=== PATIENT | female | born 1950 | race Caucasian/White ===

== ENCOUNTER 2018-04-30 10:16 | Outpatient (CLI) | payer MEDICARE ==
--- NOTE | 2018-04-30 12:27 | ULT ---
TRANSABDOMINAL AND TRANSVAGINAL PELVIC ULTRASOUND: Date 04/30/18 HISTORY: 68-year-old female with pelvic fullness, discharge, and pelvic pain. FINDINGS/IMPRESSION: The patient is post hysterectomy. No free fluid is seen. In the region of the left adnexa, there is a n echogenic area which could represent bowel. However, no peristalsis was demonstrated during evaluat ion. This measured 7.3 x 2.5 cm. The possibility of a mass cannot be completely excluded. Further evaluation with CT scan of the abdomen and pelvis with oral and IV contrast is recommended. POS: DARI
== END 2018-04-30 10:17 | disposition home or self-care (01) ==
LOC: BICULT 10:16 → MERGE 11:00
PROVIDERS: ATTEND Family Medicine
DX: R19.00 Intra-abdominal and pelvic swelling, mass and lump, unspecified site (principal); Z90.710 Acquired absence of both cervix and uterus
CPT/HCPCS: 76856

== ENCOUNTER 2018-04-30 10:39 | Outpatient (CLI) | payer MEDICARE ==
--- NOTE | 2018-04-30 16:47 | ULT ---
LEFT BREAST ULTRASOUND: HISTORY: Palpable mass at the 4 o'clock position of the left breast. TECHNIQUE: Multiplanar haley-scale and color Doppler images were obtained in a left breast ultrasound. FINDINGS: In the 4 o'clock position of the left breast, normal appearing breast parenchyma is seen. No cyst is seen. No suspicious shadowing or solid mass is identified. IMPRESSION: BI-RADS category 1-Negative. Annual screening mammography is recommended. POS: DARI
--- NOTE | 2018-05-05 13:24 | MMO ---
Bilateral MAMMO Bilat Diag DDI+ANA. CLINICAL HISTORY: Patient is 68 years old and is seen for diagnostic exam,lump or thickening and pain in the left breast. The patient has no family history of breast cancer. The patient has no personal history of cancer. VIEWS: The views performed were: bilateral craniocaudal with tomosynthesis; bilateral mediolateral oblique with tomosynthesis; and bilateral mediolateral. FILMS COMPARED: The present examination has been compared to prior imaging studies performed at [facility] on 04/30/2018, and at [facility] on 08/04/2004 and 03/29/2009. MAMMOGRAM FINDINGS: There are scattered fibroglandular densities. There are benign appearing calcifications seen in both breasts. There are no suspicious masses, calcifications or areas of architectural distortion. IMPRESSION: THERE IS NO MAMMOGRAPHIC EVIDENCE OF MALIGNANCY. A ROUTINE FOLLOW-UP MAMMOGRAM IN 1 YEAR IS RECOMMENDED. THE RESULTS OF THIS EXAM WERE SENT TO THE PATIENT. ACR BI-RADS Category 2 - Benign finding MAMMOGRAPHY NOTE: 1. A negative mammogram report should not delay a biopsy if a dominant of clinically suspicious mass is present. 2. Approximately 10% to 15% of breast cancers are not detected by mammography. 3. Adenosis and dense breasts may obscure an underlying neoplasm.
== END 2018-04-30 10:40 | disposition home or self-care (01) ==
LOC: BICMAMMO 10:39 → MERGE 14:00
PROVIDERS: ATTEND Family Medicine
DX: N63.20 Unspecified lump in the left breast, unspecified quadrant (principal)
CPT/HCPCS: 76642; 77066; G0279

== ENCOUNTER 2018-05-14 10:24 | Outpatient (CLI) | payer MEDICARE ==
[~2018-05-14 10:24] MED LIST: ISOVUE-370 76%-LOCM 1 ML ONE
--- NOTE | 2018-05-14 11:36 | CT ---
FContrast-enhanced CT images abdomen and pelvis. HISTORY: Patient with constipation and vaginal discharge for 3 months[address] Contrast-enhanced CT images of the abdomen and pelvis demonstrates the lung bases to be unremarkable. No evidence of free intraperitoneal air seen. The liver, spleen, gallbladder, pancreas, adrenal glands are unremarkable. The left kidney is unremar kable. There is an area of cortical thinning seen in the lower pole of the right kidney anteriorly compatibl e with an area of likely scarring. No evidence of hydroureteronephrosis seen. Atherosclerotic calcifications seen in the abdominal aorta and iliac arteries. No dilated loops of small bowel seen. The proximal and transverse colon is unremarkable. The descending colon is unremarkable. There is an area of abnormal thickening in the sigmoid colon and proximal rectum. There is a loss of the fat plane between the sigmoid colon and the left urinary bladder dome. There is abnormal thickeni ng in this area. This may represent fistulous communication or invasion of a colonic or urinary bladd er mass into the adjacent structure. Correlate with the cystoscopy and urinalysis. IMPRESSION: Area of left urinary bladder dome thickening with loss of the fat plane between the sigmo id colon and urinary bladder. There may be a colonic mass with extension into the bladder. Correlate with direct visualization of the urinary bladder and colon.
== END 2018-05-14 10:25 | disposition home or self-care (01) ==
LOC: BICCT 10:24
PROVIDERS: ATTEND Family Medicine
DX: R19.00 Intra-abdominal and pelvic swelling, mass and lump, unspecified site (principal)
CPT/HCPCS: 74177; 82565; Q9966

== ENCOUNTER 2018-06-26 08:37 | Outpatient (CLI) | payer MEDICARE ==
--- NOTE | 2018-06-26 10:26 | CT ---
CT Abdomen Pelvis W WO con: 06/26/2018 12:00 AM CLINICAL HISTORY: Previous mass between the colon and bladder.. TECHNIQUE: Multiple contiguous axial images were obtained and a CT of the abdomen and pelvis without and with IV contrast. Postcontrast images were obtained in the nephrographic and excretory phases. Sagittal and coronal reformats were performed. Additionally, a CT cystogram of the pelvis was performed after instilling contrast through a catheter in the urinary bladder. COMPARISON: 05/14/2018 FINDINGS: Kidneys and Urinary Tract: Right kidney and ureter: No calculi. No hydronephrosis or hydroureter. No renal mass or other lesions . No urothelial lesions: no filling defect, dilation, stricture or wall thickening. Left kidney and ureter: No calculi. No hydronephrosis or hydroureter. No renal mass or other lesions. No urothelial lesions: no filling defect, dilation, stricture or wall thickening. Urinary bladder: Mild thickening of the dome of the urinary bladder wall. No foci of air in the urina ry bladder before the contrast was instilled.. Remainder of Abdomen and Pelvis: Liver: Normal. Gallbladder and biliary system: Normal. No CT evident gallstones. No biliary ductal dilatation. Spleen: Normal. Pancreas: Normal. Adrenal glands: 1.2 cm right adrenal mass with mean Hounsfield unit value of -34. This most likely re presents an adrenal adenoma. Normal left adrenal gland. GI tract: Scattered diverticula are seen in the colon. The sigmoid colon is intimately associated wit h the urinary bladder which may represent scarring from prior episodes of diverticulitis. No obvious colon mass is seen. Abdominal aorta and its major branches: Atherosclerotic calcifications No aneurysm. Peritoneum/retroperitoneum: Normal. No ascites. No adenopathy. Pelvic structures: Status post hysterectomy. No pelvic lymphadenopathy. Body wall and musculoskeletal: Degenerative changes in the spine. Visualized lower thorax: Normal. No pulmonary parenchymal mass or pleural effusion. IMPRESSION: 1. Intimate association between the colon and urinary bladder wall is likely secondary to scarring fr om prior diverticulitis. 2. Right adrenal adenoma
== END 2018-06-26 08:38 | disposition home or self-care (01) ==
LOC: CT 08:37
PROVIDERS: ATTEND Urology
DX: R19.00 Intra-abdominal and pelvic swelling, mass and lump, unspecified site (principal); D35.01 Benign neoplasm of right adrenal gland
CPT/HCPCS: 74178; 82565

== ENCOUNTER 2018-08-11 09:00 | Outpatient (CLI) | payer MEDICARE ==
[2018-08-11 12:01] LABS: #Eosinphils 0.1 thou/uL (0.0-0.7); #Lymphocytes 2.5 thou/uL (1.20-3.40); #Monocytes 0.7 thou/uL (0.11-0.59); #Neutrophils 6.6 thou/uL (1.40-6.50); %Basophils 0.5 % (0.0-1.0); %Eosinophils 0.7 % (0.0-10.0); %Lymphocytes 25.1 % (21.0-51.0); %Monocytes 7.4 % (0.0-10.0); %Neutrophils 66.3 % (42.0-75.0); Hemoglobin 15.4 g/dL (12.0-16.0); Mean Corpuscular HGB CONC 31.8 g/dL (32.0-36.0); Mean Corpuscular Hemoglobin 31.5 pg (27.0-31.0); Mean Corpuscular Volume 99.1 fL (78.0-98.0); Platelet Count 282 thou/uL (130-400); RBC Distribution Width 12.4 % (11.5-14.5); Red Blood Cell (RBC) Count 4.88 mill/uL (4.20-5.40); White Blood Cell (WBC) Count 9.9 thou/uL (4.8-10.8)
[2018-08-11 12:06] LABS: Hemoglobin A1c 6.1 % (4.0-6.0)
[2018-08-11 12:28] LABS: ALT (SGPT) 12 U/L (8-55); AST (SGOT) 15 U/L (5-34); Albumin 4.3 g/dL (3.4-4.8); Alkaline Phosphatase 127 U/L (40-150); Anion Gap 15 mmol/L (10-20); BUN (Urea Nitrogen) 10 mg/dL (9.8-20.1); Bilirubin, Total 0.6 mg/dL (0.2-1.2); Calc. Creatinine Clearance 0 mL/min (70-130); Calcium 9.5 mg/dL (7.8-10.44); Carbon Dioxide 29 mmol/L (23-31); Chloride 100 mmol/L (98-107); Estimated GFR-MDRD 72; Globulin 2.7 g/dL (2.4-3.5); Glucose 104 mg/dL (80-115); Potassium 3.7 mmol/L (3.5-5.1); Sodium 140 mmol/L (136-145)
== END 2018-08-11 09:01 | disposition home or self-care (01) ==
LOC: LABBT 09:00
PROVIDERS: ATTEND Surgery
DX: Z01.818 Encounter for other preprocedural examination (principal); N82.4 Other female intestinal-genital tract fistulae
CPT/HCPCS: 80053; 83036; 85025; 93005; 93010

== ENCOUNTER 2018-08-11 10:15 | Inpatient (IN) | payer MEDICARE ==
[2018-08-11 10:34] VITALS: BMI 20.9
[2018-08-18] MEDS ORDERED: Fentanyl 100 MCG/2 ML VIAL ONE ×2 (07:56→12:40)
[2018-08-18] MEDS ORDERED: Dexamethasone 4 mg/ml Vial ONE (07:56)
[2018-08-18] MEDS ORDERED: Midazolam HCl 2 mg/2 ml Vial ONE (07:56)
[2018-08-18] MEDS ORDERED: Meropenem 2 GM in Sodium Chloride 0.9% 100 ML IVPB SCH (08:45)
[2018-08-18] MEDS ORDERED: Fentanyl 250 MCG/5 ML VIAL ONE (08:49)
[2018-08-18] MEDS ORDERED: Bupivacaine HCl 0.5%/Epinephrine 1:200,000/PF 30 ml Vial ONE (11:15)
[2018-08-18] MEDS ORDERED: Glycopyrrolate 0.2 MG/ML 5 ML SYRINGE ONE (11:48)
[2018-08-18] MEDS ORDERED: Ketorolac Tromethamine 30 MG/ML VIAL ONE (11:48)
[2018-08-18] MEDS ORDERED: Rocuronium Bromide 10 MG/ML (10ML VIAL) ONE (11:48)
[2018-08-18] MEDS ORDERED: PROPOFOL 200 MG/20 ML VIAL ONE (11:48)
[2018-08-18] MEDS ORDERED: Lidocaine 1% PF 5 ML VIAL ONE (11:48)
[2018-08-18] MEDS ORDERED: Morphine 4 MG/ML VIAL SLOW IVP PRN (12:05)
[2018-08-18] MEDS ORDERED: hydrALAZINE 20 MG/ML VIAL SLOW IVP PRN (12:05)
[2018-08-18] MEDS ORDERED: Promethazine HCl 25 MG/ML VIAL IM PRN ×2 (12:05→12:24)
[2018-08-18] MEDS ORDERED: Ondansetron PF 4 MG/2 ML Vial IVP PRN (12:05)
[2018-08-18] MEDS ORDERED: hydrALAZINE 20 MG/ML VIAL ONE (12:14)
[2018-08-18] MEDS ORDERED: Promethazine HCl 25 MG/ML VIAL SLOW IVP PRN (12:24)
[2018-08-18] MEDS ORDERED: Ondansetron HCl/PF 4 MG/2 ML Vial IVP PRN (12:24)
--- NOTE | 2018-08-18 13:00 | HP ---
CHIEF COMPLAINT: Vaginal discharge. HISTORY OF PRESENT ILLNESS: The patient is a 68-year-old female, who had developed diverticulitis in February, was treated with antibiotics. She has also had severe constipation and foul-smelling vaginal discharge. Colonoscopy shows a very tight stricture, and CT scan showed a colovaginal fistula. PAST MEDICAL HISTORY: Significant for COPD, arthritis. PAST SURGICAL HISTORY: section. She had adhesion removal, hysterectomy, colonoscopy, cystoscopy, vaginoscopy. FAMILY HISTORY: Non-Hodgkin's lymphoma, diabetes. SOCIAL HISTORY: She is . Former smoker. She quit 4 years ago. Occasional alcohol. She has allergies to some antibiotics that she does not remember the name of it. PHYSICAL EXAMINATION: VITAL SIGNS: Height 58, weight 103, body mass index 21.5. GENERAL: She is a well-developed, well-nourished female, in no apparent distress. HEENT: Unremarkable. LUNGS: Clear. HEART: Regular rate and rhythm. ABDOMEN: She has a well-healed surgical scar, low midline. No hernias. No tenderness or mass. EXTREMITIES: Good pulses. No pedal edema. ASSESSMENT: Colovaginal fistula with stricture. PLAN: We will attempt laparoscopic sigmoid colectomy, possible open. CONSENT: I have discussed the planned procedure as well as risk of bleeding, infection, injury to bowel, bladder, need to open leakage from any anastomosis and recurrence. She understands and gives her informed consent. Job ID: [id number]
[2018-08-18] MEDS ORDERED: D5 1/2 NS w/20 mEq KCL 1,000 ML ONE (13:32)
[2018-08-18] MEDS: Acetaminophen 1,000 MG in Premix Bag 1 BAG IVPB SCH ×2 (14:09→20:40)
[2018-08-18] MEDS: Morphine 4 MG/ML VIAL SLOW IVP PRN ×3 (14:10→20:44)
[2018-08-18] MEDS: D5 1/2 NS w/20 mEq KCL 1,000 ML IV SCH ×3 (14:13→23:22)
--- NOTE | 2018-08-18 14:57 | OP ---
DATE OF PROCEDURE: 08/18/2018 PREOPERATIVE DIAGNOSIS: Colovesical/colovaginal fistula. PROCEDURE PERFORMED: Laparoscopic hand-assisted sigmoid colectomy. INDICATIONS: A 68-year-old female, who had an episode of diverticulitis in February. Postprocedure, she developed severe constipation and frequent urinary tract infections as well as some brownish vaginal discharge. She underwent a CT scan that showed what appeared to be a colovesical fistula. Colonoscopy, they were unable to go past the stricture. FINDINGS: About a 2 cm area on the superior aspect of the bladder midline. There were quite a bit of adhesions from previous surgery, which were taken down, stapled end-to-end anastomosis was performed utilizing a 29 EEA. DESCRIPTION OF PROCEDURE: After informed consent was obtained, the patient had undergone a mechanical bowel prep at home. She was taken to the operating room, where she underwent general endotracheal anesthesia. She was placed in lithotomy position. Her abdomen and perineum were prepped and draped in the usual fashion. A 5-mm incision was performed in the right upper quadrant. Veress needle was inserted. Drop test was performed. Pneumoperitoneum was created to a volume of 2 L of carbon dioxide. Utilizing a 5 mm trocar and 0-degree laparoscope, direct visual entry into the abdominal cavity was performed. Pneumoperitoneum was created to a pressure of 15 mmHg. Then under direct vision, another 5 mm port was placed in the right lower quadrant and a laparoscopic lysis of adhesions was performed. Eventually, I was able to add another 5 mm port in the left upper quadrant and also in the left lower quadrant. The omentum was taken down off the anterior abdominal wall. Then, the colon was defined and from the omentum. The mesocolon was divided just distal to the NADIR and the ureter was identified, then was able to take down further adhesions to what appeared to be the definite fistulous tract, but it was firmly attached to the bladder. In order to be safer, I elected to go ahead and do a hand-assisted port at this time to try and take this colon off the bladder. This was taken down sharply utilizing Metzenbaum scissors. There was a tiny little abscess cavity that was present, but there was no evidence of a full-thickness bladder hole or anything. No drainage from the bladder. Once this was taken down, since we already had the hand-assisted port in, went up dividing the mesentery with the LigaSure and just distal to this inflamed area of the colon. I was able to go ahead and divided utilizing the Contour stapler. Then, the mesentery was further divided proximally and the colon divided with the Contour stapler. This specimen was sent to Pathology for further analysis. The staple line was excised from using Cezar clamps, bowel control was obtained and the staple line was excised. A 29 EEA stapler was used and the anvil was placed proximally and brought out through the site of the colon. Then, I went below and inserted the EEA transanally to the staple line and just distal to the staple line, the spike was brought out through the colon. The stapler was attached to the anvil and closed and fired. The donuts were checked. They were both complete. The anastomosis was tested by inserting a proctoscope in the rectum. In compressing the proximal colon, the colon was inflated with air under pressure. There was no bubbles underwater seen. No evidence of air leak. The colon decompressed. The proctoscope removed. Hemostasis was assured. Changed gloves and gown, went back to laparoscopic approach. The abdomen was re-insufflated. Everything was inspected. There was no bleeding. The abdomen was irrigated, irrigation fluid removed. Then, trocars were removed as well as the hand-assisted port. The fascia was closed with a running #1 PDS. Hemostasis was achieved. The wound was thoroughly irrigated with saline. The skin closed in the midline with a running 4-0 Rapide and the small trocar sites with interrupted 4-0 Rapide. Dermabond applied. The patient tolerated the procedure well, transferred to Recovery in good condition. Job ID: [id number]
[2018-08-18] MEDS: Ketorolac Tromethamine 30 MG/ML VIAL IVP SCH (16:47)
[2018-08-18] MEDS: Meropenem 2 GM in Sodium Chloride 0.9% 100 ML IVPB SCH (17:08)
[2018-08-18] MEDS: Famotidine/PF 20 mg/2ml Vial SLOW IVP SCH (20:44)
[2018-08-18] MEDS: Famotidine 20 MG TAB PO SCH (21:00)
[2018-08-19] MEDS: Ketorolac Tromethamine 30 MG/ML VIAL IVP SCH ×3 (00:08→12:39)
[2018-08-19] MEDS: Meropenem 2 GM in Sodium Chloride 0.9% 100 ML IVPB SCH ×3 (00:46→16:03)
[2018-08-19] MEDS: Morphine 4 MG/ML VIAL SLOW IVP PRN ×3 (00:46→21:56)
[2018-08-19] MEDS: Acetaminophen 1,000 MG in Premix Bag 1 BAG IVPB SCH ×2 (03:07→09:27)
[2018-08-19] MEDS: D5 1/2 NS w/20 mEq KCL 1,000 ML IV SCH ×3 (05:51→18:05)
[2018-08-19 06:00] LABS: Anion Gap 10 mmol/L (10-20); BUN (Urea Nitrogen) 10 mg/dL (9.8-20.1); Calc. Creatinine Clearance 52 mL/min (70-130); Calcium 8.6 mg/dL (7.8-10.44); Carbon Dioxide 25 mmol/L (23-31); Chloride 103 mmol/L (98-107); Estimated GFR-MDRD 75; Glucose 146 mg/dL (80-115); Potassium 4.1 mmol/L (3.5-5.1); Sodium 134 mmol/L (136-145)
[2018-08-19 06:22] LABS: Band 11 % (5-11); Hemoglobin 12.9 g/dL (12.0-16.0); Lymphocytes 5 % (21-51); MDiff Complete? YES; Mean Corpuscular HGB CONC 31.9 g/dL (32.0-36.0); Mean Corpuscular Hemoglobin 32.3 pg (27.0-31.0); Monocytes 3 % (0-10); Neutrophil 81 % (42-75); Platelet Count 236 thou/uL (130-400); RBC Distribution Width 12.6 % (11.5-14.5); Red Blood Cell (RBC) Count 3.98 mill/uL (4.20-5.40); White Blood Cell (WBC) Count 24.9 thou/uL (4.8-10.8)
[2018-08-19] MEDS: Famotidine 20 MG TAB PO SCH ×2 (09:28→20:26)
[2018-08-19] MEDS: Enoxaparin Sodium 40 MG/0.4 ML SYRINGE SC SCH (09:28)
[2018-08-19] MEDS: Famotidine/PF 20 mg/2ml Vial SLOW IVP SCH ×2 (09:28→20:29)
--- NOTE | 2018-08-19 11:18 | PRG ---
DATE OF SERVICE: 08/19/2018 SUBJECTIVE: The patient is status post sigmoid colectomy. Pain is well controlled. No nausea or vomiting. No flatus. PHYSICAL EXAMINATION: VITAL SIGNS: Her temperature is 97.9, pulse 81, blood pressure 141/74. GENERAL: She looks good. She is awake, alert. LUNGS: Clear. ABDOMEN: Soft, nondistended. The incisions healing well. There is no evidence of infection. LABORATORY DATA: Her white count is 24.9, H and H 12 and 40, platelet count 236. Electrolytes are fine, but elevated glucose at 146. ASSESSMENT: Status post sigmoid colectomy. PLAN: Continue Whitley because she has a colovesical fistula. We will check the urinalysis and repeat CBC in the morning. Job ID: [id number]
[2018-08-19] MEDS: Acetaminophen 1,000 MG in Premix Bag 1 BAG IVPB PRN (20:27)
[2018-08-20] MEDS: Meropenem 2 GM in Sodium Chloride 0.9% 100 ML IVPB SCH ×3 (00:38→17:33)
[2018-08-20] MEDS: Morphine 4 MG/ML VIAL SLOW IVP PRN ×4 (00:44→21:05)
[2018-08-20] MEDS: D5 1/2 NS w/20 mEq KCL 1,000 ML IV SCH ×3 (03:21→21:06)
[2018-08-20] MEDS: Acetaminophen 1,000 MG in Premix Bag 1 BAG IVPB PRN (03:55)
[2018-08-20 04:56] LABS: Bilirubin Negative (Negative); Blood, Urine Negative (Negative); Clarity Clear (Clear); Glucose, Urine (Dipstick) Negative (Negative); Leukocyte Negative (Negative); Nitrite Negative (Negative); Protein, Urine (Dipstick) Negative (Neg-Trace); Urobilinogen 0.2 mg/dL (Less than 2)
[2018-08-20 07:39] LABS: #Eosinphils 0.1 thou/uL (0.0-0.7); #Lymphocytes 2.4 thou/uL (1.20-3.40); #Monocytes 1.1 thou/uL (0.11-0.59); #Neutrophils 15.7 thou/uL (1.40-6.50); %Basophils 0.2 % (0.0-1.0); %Eosinophils 0.3 % (0.0-10.0); %Lymphocytes 12.6 % (21.0-51.0); %Monocytes 5.5 % (0.0-10.0); %Neutrophils 81.4 % (42.0-75.0); Hemoglobin 11.2 g/dL (12.0-16.0); Mean Corpuscular HGB CONC 31.6 g/dL (32.0-36.0); Mean Corpuscular Hemoglobin 31.8 pg (27.0-31.0); Mean Platelet Volume 6.9 fL (7.4-10.4); Platelet Count 192 thou/uL (130-400); RBC Distribution Width 12.6 % (11.5-14.5); Red Blood Cell (RBC) Count 3.53 mill/uL (4.20-5.40); White Blood Cell (WBC) Count 19.3 thou/uL (4.8-10.8)
[2018-08-20] MEDS: Famotidine 20 MG TAB PO SCH ×2 (09:30→21:02)
[2018-08-20] MEDS: Famotidine/PF 20 mg/2ml Vial SLOW IVP SCH ×2 (09:30→21:02)
[2018-08-20] MEDS: Enoxaparin Sodium 40 MG/0.4 ML SYRINGE SC SCH (09:30)
--- NOTE | 2018-08-20 09:59 | PRG ---
DATE OF SERVICE: 08/20/2018 SUBJECTIVE: The patient reports she had a rough night as far as not being able to sleep because all the bells and whistles and interruptions. She is not complaining of any pain. She does have a little mild nausea. No vomiting. She has not passed any flatus. OBJECTIVE: VITAL SIGNS: Her temperature is 97.9, pulse 75, blood pressure 140/69. GENERAL: She looks good. She is awake and alert. ASSESSMENT AND PLAN: She says she wants to ambulate, but she cannot because of the Whitley catheter. I discussed that with a urologist and we checked the urinalysis. There were absolutely no red cells in the urine, so I am going to go ahead and discontinue the Whitley, so that she can ambulate more. We will hold off advancing her diet at this time because of the nausea. Job ID: [id number]
[2018-08-20] MEDS: Morphine 2 MG/ML SYRINGE SLOW IVP PRN (10:41)
[2018-08-21] MEDS: Meropenem 2 GM in Sodium Chloride 0.9% 100 ML IVPB SCH ×3 (00:39→17:28)
[2018-08-21] MEDS: Morphine 4 MG/ML VIAL SLOW IVP PRN ×2 (00:40→18:49)
[2018-08-21] MEDS: D5 1/2 NS w/20 mEq KCL 1,000 ML IV SCH ×2 (08:48→17:27)
[2018-08-21] MEDS: Enoxaparin Sodium 40 MG/0.4 ML SYRINGE SC SCH (08:48)
[2018-08-21] MEDS: Famotidine/PF 20 mg/2ml Vial SLOW IVP SCH ×2 (08:49→20:58)
[2018-08-21] MEDS: Famotidine 20 MG TAB PO SCH ×2 (08:49→20:58)
--- NOTE | 2018-08-21 09:49 | PRG ---
DATE OF SERVICE: 08/21/2018 SUBJECTIVE: The patient says her pain is a little better. She has no more nausea. She has not passed any flatus, lot of rumbling she feels. OBJECTIVE: VITAL SIGNS: Temperature is 98.4, pulse 86, blood pressure 123/80. GENERAL: She looks good. ABDOMEN: Soft. She is still moderately tender. Incisions look good. There is some mild bruising, but no evidence of infection. ASSESSMENT: Postoperative sigmoid colectomy. PLAN: We will try sips of clear liquids. Check a KUB. Keep ambulating. Job ID: [id number]
[2018-08-21 10:19] LABS: #Eosinphils 0.1 thou/uL (0.0-0.7); #Lymphocytes 1.1 thou/uL (1.20-3.40); #Neutrophils 10.9 thou/uL (1.40-6.50); %Basophils 0.2 % (0.0-1.0); %Eosinophils 0.8 % (0.0-10.0); %Lymphocytes 8.4 % (21.0-51.0); %Monocytes 7.7 % (0.0-10.0); %Neutrophils 82.9 % (42.0-75.0); Mean Corpuscular HGB CONC 31.6 g/dL (32.0-36.0); Mean Corpuscular Hemoglobin 31.3 pg (27.0-31.0); Mean Platelet Volume 6.9 fL (7.4-10.4); Platelet Count 219 thou/uL (130-400); RBC Distribution Width 12.4 % (11.5-14.5); Red Blood Cell (RBC) Count 4.14 mill/uL (4.20-5.40); White Blood Cell (WBC) Count 13.2 thou/uL (4.8-10.8)
--- NOTE | 2018-08-21 14:41 | RAD ---
KUB: INDICATIONS: Postop sigmoid colectomy. COMPARISON: None. FINDINGS: Supine images limit evaluation for free air. The bowel gas pattern is nonspecific. There is one sin gle gas-filled, dilated loop of small bowel in the right lower quadrant of the abdomen, which may ref lect a regional ileus. There is a surgical suture line seen within the left lower pelvis. No acute osseous abnormality is evident. IMPRESSION: Mild gas-filled loop of small bowel within the right lower quadrant may reflect a regional ileus. Re commend correlation. There is gas distention of a portion of the colon and rectum. There are no ove rt changes to suggest the presence of a small bowel obstruction. POS: CET
[2018-08-22] MEDS: Meropenem 2 GM in Sodium Chloride 0.9% 100 ML IVPB SCH ×2 (00:06→10:20)
[2018-08-22] MEDS: Morphine 2 MG/ML SYRINGE SLOW IVP PRN (00:11)
[2018-08-22] MEDS: D5 1/2 NS w/20 mEq KCL 1,000 ML IV SCH (03:23)
[2018-08-22] MEDS ORDERED: traMADol HCl 50 MG TAB PO PRN (09:23)
[2018-08-22] MEDS: Enoxaparin Sodium 40 MG/0.4 ML SYRINGE SC SCH (09:34)
[2018-08-22] MEDS: Famotidine/PF 20 mg/2ml Vial SLOW IVP SCH (09:34)
[2018-08-22] MEDS: Famotidine 20 MG TAB PO SCH (09:35)
--- NOTE | 2018-08-22 10:01 | PRG ---
DATE OF SERVICE: 08/22/2018 SUBJECTIVE: The patient says that she is passing gas, had a small bowel movement, some quite a bit of discomfort in her abdomen. No nausea or vomiting. She is tolerating clear liquids well. She do not like the food. OBJECTIVE: VITAL SIGNS: Temperature 98, pulse 84, and blood pressure 169/77. GENERAL: She is awake and alert. ABDOMEN: Soft. She had a little bit of bleeding from one area of the incision. No evidence of infection. ASSESSMENT: Doing well. PLAN: Full liquid diet. Hep-Lock IV. Job ID: [id number]
[2018-08-22 12:00] VITALS: BP 162/72; TEMP 98
--- NOTE | 2018-08-22 23:23 | DIS ---
DATE OF ADMISSION: 08/18/2018 DATE OF DISCHARGE: 08/22/2018 DISCHARGE DIAGNOSIS: Chronic diverticulitis with colovaginal fistula. PROCEDURES DURING ADMISSION: Laparoscopic hand assisted sigmoid colectomy. HOSPITAL COURSE: The patient was admitted. She has undergone a mechanical bowel prep. She was taken to the operating room, where she underwent a sigmoid colon resection. Whitley was left in for a couple of days and then it was removed. She had a little prolonged ileus, then started passing gas, is now having bowel movements, tolerating full liquids. Discharged home on tramadol and Zofran. She will follow up with me in 2 weeks. Job ID: [id number]
== END 2018-08-22 14:53 | disposition home or self-care (01) | DRG 330 ==
LOC: SURG A 08-18 07:00 → SJJU 08-18 13:16
PROVIDERS: ADMIT Surgery; ATTEND Surgery
PROC: 0DTN4ZZ Resection of Sigmoid Colon, Percutaneous Endoscopic Approach (ICD-10-PCS; principal; 2018-08-18)
DX: N82.3 Fistula of vagina to large intestine (principal); K57.32 Diverticulitis of large intestine without perforation or abscess without bleeding; K56.7 Ileus, unspecified; J44.9 Chronic obstructive pulmonary disease, unspecified; K59.00 Constipation, unspecified; M19.90 Unspecified osteoarthritis, unspecified site; R11.2 Nausea with vomiting, unspecified; Z90.710 Acquired absence of both cervix and uterus; Z87.891 Personal history of nicotine dependence
CPT/HCPCS: 36415; 36416; 74018; 80048; 81003; 85025; 88307; J0131; J0360; J0670; J1100; J1650; J1885; J2001; J2185; J2250; J2270; J2405; J2704; J3010; J3490; S0028

== ENCOUNTER 2019-02-05 18:29 | Inpatient (IN) | payer MEDICARE ==
[~2019-02-05 18:29] MED LIST changes: +Heparin 10,000 UNITS/1 ML VIAL ONE; -ISOVUE-370 76%-LOCM 1 ML ONE; +Iopamidol 370 76% 100 ML VIAL ONE; +Iopamidol 370 76% 50 ML VIAL FS ONE; +Metoprolol Tartrate 5 MG/5 ML VIAL ONE
[2019-02-05 18:58] LABS: #Basophils 0.1 thou/uL (0.0-0.2); #Eosinphils 0.1 thou/uL (0.0-0.7); #Lymphocytes 3.2 thou/uL (1.20-3.40); #Monocytes 0.9 thou/uL (0.11-0.59); #Neutrophils 7.8 thou/uL (1.40-6.50); %Basophils 0.9 % (0.0-1.0); %Lymphocytes 26.4 % (21.0-51.0); %Monocytes 7.4 % (0.0-10.0); %Neutrophils 64.4 % (42.0-75.0); Mean Corpuscular HGB CONC 33.3 g/dL (32.0-36.0); Mean Corpuscular Hemoglobin 32.4 pg (27.0-31.0); Mean Corpuscular Volume 97.1 fL (78.0-98.0); Mean Platelet Volume 7.8 fL (7.4-10.4); Platelet Count 316 thou/uL (130-400); RBC Distribution Width 12.8 % (11.5-14.5); Red Blood Cell (RBC) Count 4.95 mill/uL (4.20-5.40); White Blood Cell (WBC) Count 12.1 thou/uL (4.8-10.8)
--- NOTE | 2019-02-05 19:03 | RAD ---
EXAM: CHEST ONE VIEW HISTORY: Chest pain and ST elevations. COMPARISON: None FINDINGS: A pacing device overlies the right upper chest and left lateral lower chest and upper abdomen. Cardia c silhouette and pulmonary vasculature are within normal limits. Patient there is evidence of a calcified granuloma overlying the right midlung zone. The lungs are otherwise clear. No pneumothorax or pleural effusion is seen. Osteopenia is present. Vascular calcifications are seen in the thoracic aorta. IMPRESSION: No acute cardiopulmonary process.
[2019-02-05] MEDS ORDERED: Midazolam HCl 2 mg/2 ml Vial ONE (19:10)
[2019-02-05] MEDS ORDERED: Fentanyl 100 MCG/2 ML VIAL ONE (19:10)
[2019-02-05] MEDS ORDERED: Nitroglycerin 100MG/250ML BOT 250 ML ONE (19:15)
[2019-02-05] MEDS ORDERED: Verapamil 5 MG/2 ML VIAL ONE (19:15)
[2019-02-05] MEDS ORDERED: Adenosine 6 MG/2 ML VIAL ONE (19:15)
[2019-02-05 19:16] LABS: ALT (SGPT) 14 U/L (8-55); AST (SGOT) 34 U/L (5-34); Albumin 4.6 g/dL (3.4-4.8); Alkaline Phosphatase 136 U/L (40-110); Anion Gap 19 mmol/L (10-20); BUN (Urea Nitrogen) 8 mg/dL (9.8-20.1); Bilirubin, Total 0.6 mg/dL (0.2-1.2); Calc. Creatinine Clearance 0 mL/min (70-130); Calcium 9.8 mg/dL (7.8-10.44); Carbon Dioxide 29 mmol/L (23-31); Chloride 95 mmol/L (98-107); Estimated GFR-MDRD 58; Globulin 3.2 g/dL (2.4-3.5); Glucose 144 mg/dL (80-115); Potassium 3.5 mmol/L (3.5-5.1); Protein, Total 7.8 g/dL (6.0-8.3); Sodium 139 mmol/L (136-145)
[2019-02-05] MEDS ORDERED: Clopidogrel Bisulfate 300 MG TAB ONE (19:17)
[2019-02-05] MEDS ORDERED: Heparin 10,000 UNITS/1 ML VIAL ONE (19:21)
[2019-02-05] MEDS ORDERED: Atropine Sulfate 1 mg/1 ml Vial ONE (19:22)
[2019-02-05] MEDS ORDERED: Atropine Sulfate 1 mg/10 ml Syringe ONE (19:22)
--- NOTE | 2019-02-05 19:29 | CON ---
DATE OF CONSULTATION: CHIEF COMPLAINT: Acute NM. HISTORY OF PRESENT ILLNESS: Ms. Weller is a very pleasant 69-year-old woman with no previous history of underlying coronary artery disease, re-presented with acute onset chest pain, this occurred 1 hour prior to presentation. It was substernal with back radiation. No associated ameliorating or exacerbating factors present. She was found to have ST-segment elevation on EKG. On arrival to the slab inspector, she was found to have a minimal discomfort. PAST MEDICAL HISTORY: Hypertension, rare tobacco abuse, recent laparoscopic cholecystectomy, chronic obstructive pulmonary disease, arthritis, hysterectomy, and cystoscopy. SOCIAL HISTORY: As above including she is . Occasional alcohol use. REVIEW OF SYSTEMS: A 10-point review of systems is reviewed and as above, otherwise negative. PHYSICAL EXAMINATION: GENERAL: Patient is a pleasant 69-year-old woman, who is in no acute distress. The patient appears their stated age. VITAL SIGNS: VITAL SIGNS: Blood pressure 110/70, pulse rate 80, and respirations are 20. NEUROLOGIC: The patient is alert and oriented x3 with no focal neurologic deficits. HEENT: Sclerae without icterus. Mouth has moist mucous membranes with normal pallor. NECK: No JVD. Carotid upstroke brisk. No bruits bilaterally. LUNGS: Clear to auscultation with unlabored respirations. BACK: No scoliosis or kyphosis. CARDIAC: Regular rate and rhythm with normal S1 and S2. No S3 or S4 noted. No significant rubs, murmurs, thrills, or gallops noted throughout the precordium. PMI is not displaced. There is no parasternal heave. ABDOMEN: Soft, nontender, nondistended. No peritoneal signs present. No hepatosplenomegaly. No abnormal striae. EXTREMITIES: 2+ femoral and 2+ dorsalis pedis pulses. No cyanosis, clubbing, or edema. SKIN: No gross abnormalities. DIAGNOSTIC STUDIES: EKG shows normal sinus rhythm, ST-segment elevation noted inferolaterally. IMPRESSION: Acute myocardial infarction. RECOMMENDATIONS: Ms. Weller does have minimal chest pain, but has a very impressive EKG. When compared to EKG in August, this certainly appears new. At this point, recommend urgent coronary angiography and possible PCI. I discussed procedure in full detail with Ms. Weller. Risks included, but not limited to the following: , stroke, NM, need for emergency surgery, loss of limb, bleeding, and infection, as well as a reaction to the dye causing kidney failure and needing long-term dialysis. I also discussed the risks of PCI to include all of the above including coronary dissection and perforation in addition to acute stent thrombosis and restenosis. All questions about the procedure were answered. Given the above, the patient agreed to proceed with coronary angiography and possible PCI. All questions were answered, also discussed drug coated and nondrug coated stent placement. There were no complications. We will proceed if needed. Further recommendations pending the above. Job ID: [id number]
[2019-02-05] MEDS ORDERED: Mag-Al 1200 mg/1200 mg/30 ML UDCUP PO PRN (19:32)
[2019-02-05] MEDS ORDERED: Milk Of Magnesia 30 ML UDCUP PO PRN (19:32)
[2019-02-05] MEDS ORDERED: Zolpidem Tartrate 5 MG TAB PO PRN (19:32)
[2019-02-05] MEDS ORDERED: Nitroglycerin 0.4 MG TAB (25 Tab Bottle) SL PRN (19:32)
[2019-02-05] MEDS ORDERED: Heparin (Artline) 500 ML ONE (19:36)
[2019-02-05 19:44] LABS: CKMB 13.6 ng/mL (0-6.6)
[2019-02-05] MEDS ORDERED: Sodium Chloride 0.9% 1,000 ML IV SCH (19:45)
[2019-02-05 20:10] VITALS: BMI 22.0
[2019-02-05] MEDS: Atorvastatin Calcium 40 MG TAB PO SCH (21:20)
[2019-02-05] MEDS ORDERED: Nitroglycerin 50 MG/250 ML BOT 250 ML IVPB PRN (23:27)
[2019-02-06] MEDS ORDERED: Heparin (Artline) 1,000 ML ONE (01:07)
[2019-02-06 04:34] LABS: #Eosinphils 0.1 thou/uL (0.0-0.7); #Lymphocytes 2.9 thou/uL (1.20-3.40); #Monocytes 0.8 thou/uL (0.11-0.59); #Neutrophils 7.1 thou/uL (1.40-6.50); %Basophils 0.4 % (0.0-1.0); %Eosinophils 0.5 % (0.0-10.0); %Lymphocytes 26.6 % (21.0-51.0); %Monocytes 7.6 % (0.0-10.0); %Neutrophils 64.9 % (42.0-75.0); Hemoglobin 12.8 g/dL (12.0-16.0); Mean Corpuscular HGB CONC 33.7 g/dL (32.0-36.0); Mean Corpuscular Hemoglobin 32.3 pg (27.0-31.0); Mean Corpuscular Volume 95.9 fL (78.0-98.0); Platelet Count 259 thou/uL (130-400); RBC Distribution Width 12.5 % (11.5-14.5); Red Blood Cell (RBC) Count 3.96 mill/uL (4.20-5.40); White Blood Cell (WBC) Count 10.9 thou/uL (4.8-10.8)
[2019-02-06 04:42] LABS: ALT (SGPT) 29 U/L (8-55); AST (SGOT) 165 U/L (5-34); Albumin 3.3 g/dL (3.4-4.8); Alkaline Phosphatase 96 U/L (40-110); Anion Gap 10 mmol/L (10-20); BUN (Urea Nitrogen) 8 mg/dL (9.8-20.1); Bilirubin, Total 0.7 mg/dL (0.2-1.2); Calc. Creatinine Clearance 55 mL/min (70-130); Calcium 8.2 mg/dL (7.8-10.44); Carbon Dioxide 26 mmol/L (23-31); Chloride 104 mmol/L (98-107); Estimated GFR-MDRD 77; Globulin 2.4 g/dL (2.4-3.5); Glucose 116 mg/dL (80-115); Protein, Total 5.7 g/dL (6.0-8.3); Sodium 137 mmol/L (136-145)
[2019-02-06] MEDS: Aspirin Chewable 81 MG TAB PO SCH (08:29)
[2019-02-06] MEDS: Clopidogrel Bisulfate 75 MG TAB PO SCH (08:29)
[2019-02-06] MEDS: Carvedilol 6.25 MG TAB PO SCH ×2 (08:29→20:32)
[2019-02-06] MEDS: Lisinopril 5 MG TAB PO SCH ×2 (08:30→20:33)
[2019-02-06] MEDS ORDERED: FLU VACC TS2019-20(65YR UP)/PF 180 MCG/0.5 ML SYRINGE IM ONE (09:00)
[2019-02-06] MEDS ORDERED: Prevnar 13-Val Conj/PF 0.5 ML SYRINGE IM ONE (09:00)
--- NOTE | 2019-02-06 12:34 | PRG ---
DATE OF SERVICE: 02/06/2019 SUBJECTIVE: Ms. Weller is currently doing well. No current complaints except for mild nausea. No chest pain or pressure noted. She recently underwent successful stent placement with a 2.75 x 28 mm stent to the mid right coronary artery. She also has significant stenosis present of the LAD that appears to be a stable plaque. OBJECTIVE: VITAL SIGNS: Blood pressure and temperature afebrile. LUNGS: Clear to auscultation. HEART: Regular rate and rhythm. ABDOMEN: Soft, nontender, and nondistended. EXTREMITIES: No edema. DIAGNOSTIC DATA: Echo Doppler shows LVEF 50% to 55%. PERTINENT LABS: Hemoglobin 12.8. Creatinine 0.75. IMPRESSION: 1. Acute myocardial infarction. 2. Tobacco abuse. 3. Coronary artery disease. RECOMMENDATIONS: 1. Add Coreg and lisinopril for better blood pressure control. 2. Titrate off IV nitroglycerin. 3. At this point, recommend treating the stenosis to the LAD medically. This appears to be a stable plaque. Given the location and the fact bifurcation, there are risks to proceeding with a stent implantation. If she has symptoms in outpatient, we then consider proceeding with more aggressive approach. 4. I did student counselor on cessation of tobacco products. 5. Continue aspirin, Plavix, and statin therapy. Job ID: [id number]
[2019-02-06] MEDS: Atorvastatin Calcium 40 MG TAB PO SCH (20:32)
[2019-02-07] MEDS: Aspirin Chewable 81 MG TAB PO SCH (08:50)
[2019-02-07] MEDS: Carvedilol 6.25 MG TAB PO SCH (08:50)
[2019-02-07] MEDS: Lisinopril 5 MG TAB PO SCH ×2 (08:50→20:32)
[2019-02-07] MEDS: Clopidogrel Bisulfate 75 MG TAB PO SCH (08:50)
--- NOTE | 2019-02-07 10:44 | PRG ---
DATE OF SERVICE: SUBJECTIVE: Ms. Weller feels great. No chest pain or pressure. No shortness of breath. OBJECTIVE: VITAL SIGNS: Her blood pressure is 128/58, pulse is between 60-78, it is regular. LUNGS: Clear. CARDIAC: Normal S1, normal S2. ABDOMEN: Soft, nontender. EXTREMITIES: There is no edema. ASSESSMENT: Status post inferior myocardial infarction, treated with emergency stent implantation. Troponin is only registered at 0.236. Ejection fraction of 50% to 55%. PLAN: 1. Increase carvedilol if tolerated, although the heart rate now is in the 50s and we will hold off on increase. 2. Continue MOI inhibitors. 3. She is on dual anti-platelet drugs and statins. Job ID: [id number]
[2019-02-07 11:25] LABS: Troponin I 96.249 ng/mL (< 0.028)
[2019-02-07] MEDS ORDERED: Carvedilol 6.25 MG TAB PO SCH (17:00)
[2019-02-07] MEDS: Carvedilol 3.125 MG TAB PO SCH (20:28)
[2019-02-07] MEDS: Atorvastatin Calcium 40 MG TAB PO SCH (20:28)
[2019-02-08 08:06] VITALS: TEMP 97.9
[2019-02-08] MEDS: Lisinopril 5 MG TAB PO SCH (08:34)
[2019-02-08] MEDS: Aspirin Chewable 81 MG TAB PO SCH (08:34)
[2019-02-08] MEDS: Clopidogrel Bisulfate 75 MG TAB PO SCH (08:34)
[2019-02-08] MEDS: Carvedilol 3.125 MG TAB PO SCH (08:34)
[2019-02-08] MEDS ORDERED: Carvedilol 3.125 MG TAB PO SCH ×2 (09:15→21:00)
[2019-02-08 10:18] VITALS: BP 131/59
[2019-02-08 10:26] LABS: Anion Gap 11 mmol/L (10-20); BUN (Urea Nitrogen) 12 mg/dL (9.8-20.1); Calc. Creatinine Clearance 49 mL/min (70-130); Carbon Dioxide 30 mmol/L (23-31); Chloride 103 mmol/L (98-107); Estimated GFR-MDRD 67; Glucose 86 mg/dL (80-115); Sodium 141 mmol/L (136-145)
[2019-02-08 10:31] LABS: Potassium 2.8 mmol/L (3.5-5.1)
[2019-02-08] MEDS ORDERED: Potassium Chloride 20 MEQ TAB PO SCH (10:45)
[2019-02-08 16:20] LABS: Potassium 3.7 mmol/L (3.5-5.1)
--- NOTE | 2019-02-09 07:40 | DIS ---
DATE OF ADMISSION: 02/05/2019 DATE OF DISCHARGE: 02/08/2019 FINAL DIAGNOSES: 1. Status post acute inferior myocardial infarction treated with stent implantation. 2. History of smoking. 3. History of hypercholesterolemia. DISCHARGE MEDICATIONS: 1. Aspirin 81 mg a day. 2. Plavix 75 mg a day. 3. Lisinopril 5 mg twice a day. 4. Coreg 6.25 mg twice a day. 5. Atorvastatin 40 mg a day. 6. Nitroglycerin if needed. Please see admission note for full details. Briefly, this patient presented with chest pain and ST elevation in the inferior wall. She is taken directly to the cardiac catheterization lab where percutaneous stenting was done successfully. 2.75 x 32 drug coated stent was placed. The patient had a troponin of 96.249 the following morning. The patient also had a potassium of 3.0 on the and that will be redrawn before she leaves. The patient had an echocardiogram showing the ejection fraction is 50% to 55%. The patient will be followed up as an outpatient with Dr. Roberts. Job ID: [id number]
== END 2019-02-08 17:03 | disposition home or self-care (01) | DRG 247 ==
LOC: ERS 18:29 → CCL 19:55 → CCU 19:56
PROVIDERS: ADMIT Internal Medicine Cardiovascular Disease; ATTEND Internal Medicine Cardiovascular Disease
PROC: 027034Z Dilation of Coronary Artery, One Artery with Drug-eluting Intraluminal Device, Percutaneous Approach (ICD-10-PCS; principal; 2019-02-05)
PROC: B2111ZZ Fluoroscopy of Multiple Coronary Arteries using Low Osmolar Contrast (ICD-10-PCS; 2019-02-05)
DX: I21.19 ST elevation (STEMI) myocardial infarction involving other coronary artery of inferior wall (principal); I10 Essential (primary) hypertension; F17.200 Nicotine dependence, unspecified, uncomplicated; J44.9 Chronic obstructive pulmonary disease, unspecified; M19.90 Unspecified osteoarthritis, unspecified site; E78.00 Pure hypercholesterolemia, unspecified; I25.10 Atherosclerotic heart disease of native coronary artery without angina pectoris; Z90.710 Acquired absence of both cervix and uterus; Z90.49 Acquired absence of other specified parts of digestive tract; Z88.6 Allergy status to analgesic agent; Z88.0 Allergy status to penicillin
CPT/HCPCS: 36415; 71045; 76942; 80048; 80053; 82553; 84484; 85025; 85347; 92941; 93005; 93010; 93306; 93454; 93798; 94760; 99152; C1725; C1769; C1874; C1887; C9606; J0153; J0461; J1644; J2250; J3010; Q9967

== ENCOUNTER 2019-07-17 09:17 | Outpatient (CLI) | payer MEDICARE, OTHER ==
[2019-07-17 12:12] LABS: #Eosinphils 0.1 thou/uL (0.0-0.7); #Lymphocytes 2.4 thou/uL (1.20-3.40); #Monocytes 0.7 thou/uL (0.11-0.59); #Neutrophils 4.7 thou/uL (1.40-6.50); %Basophils 0.3 % (0.0-1.0); %Eosinophils 1.4 % (0.0-10.0); %Lymphocytes 30.7 % (21.0-51.0); %Monocytes 8.7 % (0.0-10.0); %Neutrophils 58.9 % (42.0-75.0); Hemoglobin 14.4 g/dL (12.0-16.0); Mean Corpuscular HGB CONC 33.5 g/dL (32.0-36.0); Mean Corpuscular Hemoglobin 33.5 pg (27.0-31.0); Mean Corpuscular Volume 99.9 fL (78.0-98.0); Mean Platelet Volume 6.9 fL (7.4-10.4); Platelet Count 250 thou/uL (130-400); RBC Distribution Width 12.9 % (11.5-14.5); Red Blood Cell (RBC) Count 4.29 mill/uL (4.20-5.40); White Blood Cell (WBC) Count 7.9 thou/uL (4.8-10.8)
[2019-07-17 12:30] LABS: ALT (SGPT) 20 U/L (8-55); AST (SGOT) 16 U/L (5-34); Albumin 3.8 g/dL (3.4-4.8); Alkaline Phosphatase 106 U/L (40-110); Anion Gap 8 mmol/L (10-20); BUN (Urea Nitrogen) 11 mg/dL (9.8-20.1); Bilirubin, Total 0.7 mg/dL (0.2-1.2); Calc. Creatinine Clearance 0 mL/min (70-130); Carbon Dioxide 29 mmol/L (23-31); Chloride 105 mmol/L (98-107); Estimated GFR-MDRD 67; Globulin 2.6 g/dL (2.4-3.5); Glucose 106 mg/dL (80-115); Potassium 4.3 mmol/L (3.5-5.1); Protein, Total 6.4 g/dL (6.0-8.3); Sodium 138 mmol/L (136-145)
[2019-07-17 18:10] LABS: SARS-CoV-2 MS2 Positive; SARS-CoV-2 N Gene Negative; SARS-CoV-2 S Gene Negative; SARS-CoV-2 orf1ab Negative
== END 2019-07-17 09:18 | disposition home or self-care (01) ==
LOC: LABBT 09:17
PROVIDERS: ATTEND Internal Medicine Cardiovascular Disease
DX: Z01.812 Encounter for preprocedural laboratory examination (principal); Z45.2 Encounter for adjustment and management of vascular access device; Z11.59 Encounter for screening for other viral diseases
CPT/HCPCS: 80053; 85025; U0003; 87635

== ENCOUNTER 2019-07-22 13:49 | Outpatient (CLI) | payer MEDICARE, OTHER | END 2019-07-22 13:50 | disposition home or self-care (01) | LOC: LAB 13:49 | PROVIDERS: ATTEND Internal Medicine Cardiovascular Disease | DX: Z01.812 Encounter for preprocedural laboratory examination (principal); Z11.59 Encounter for screening for other viral diseases | CPT/HCPCS: 87635; U0003 ==

== ENCOUNTER 2019-07-24 05:47 | Day surgery (SDC) | payer MEDICARE ==
[2019-07-17 11:12] VITALS: BMI 22.4
[2019-07-24] MEDS ORDERED: Fentanyl 100 MCG/2 ML VIAL ONE (08:39)
[2019-07-24] MEDS ORDERED: Midazolam HCl 2 mg/2 ml Vial ONE (08:39)
[2019-07-24] MEDS ORDERED: Nitroglycerin 100MG/250ML BOT 250 ML ONE (08:47)
[2019-07-24] MEDS ORDERED: Heparin 10,000 UNITS/1 ML VIAL ONE (08:47)
[2019-07-24] MEDS ORDERED: Clopidogrel Bisulfate 300 MG TAB ONE (09:08)
[2019-07-24] MEDS ORDERED: Iopamidol 370 76% 100 ML VIAL ONE (09:17)
[2019-07-24] MEDS ORDERED: Iopamidol 370 76% 50 ML VIAL FS ONE (09:17)
== END 2019-07-24 15:20 | disposition home or self-care (01) ==
LOC: CCL 05:47
PROVIDERS: ATTEND Internal Medicine Cardiovascular Disease
PROC: 027034Z Dilation of Coronary Artery, One Artery with Drug-eluting Intraluminal Device, Percutaneous Approach (ICD-10-PCS; principal; 2019-07-24)
PROC: 4A023N7 Measurement of Cardiac Sampling and Pressure, Left Heart, Percutaneous Approach (ICD-10-PCS; 2019-07-24)
PROC: B2111ZZ Fluoroscopy of Multiple Coronary Arteries using Low Osmolar Contrast (ICD-10-PCS; 2019-07-24)
DX: I25.10 Atherosclerotic heart disease of native coronary artery without angina pectoris (principal); E78.00 Pure hypercholesterolemia, unspecified; I10 Essential (primary) hypertension; I73.9 Peripheral vascular disease, unspecified; I25.2 Old myocardial infarction; E78.5 Hyperlipidemia, unspecified; J44.9 Chronic obstructive pulmonary disease, unspecified; M19.90 Unspecified osteoarthritis, unspecified site; Z87.891 Personal history of nicotine dependence; Z79.02 Long term (current) use of antithrombotics/antiplatelets; Z79.82 Long term (current) use of aspirin; Z79.899 Other long term (current) drug therapy; Z88.0 Allergy status to penicillin; Z88.5 Allergy status to narcotic agent; Z88.6 Allergy status to analgesic agent; Z88.8 Allergy status to other drugs, medicaments and biological substances; Z95.5 Presence of coronary angioplasty implant and graft
CPT/HCPCS: 76942; 85347; 92928; 93005; 93010; 93454; 93567; 99152; 99153; C1760; C1874; C9600; J1644; J2250; J3010; Q9967

== ENCOUNTER 2019-08-19 16:15 | Inpatient (IN) | payer MEDICARE, OTHER ==
[2019-08-19] MEDS ORDERED: Morphine 4 MG/ML VIAL ONE ×2 (16:47→18:16)
[2019-08-19 16:49] LABS: #Eosinphils 0.1 thou/uL (0.0-0.7); #Lymphocytes 1.4 thou/uL (1.20-3.40); #Monocytes 0.7 thou/uL (0.11-0.59); #Neutrophils 8.9 thou/uL (1.40-6.50); %Basophils 0.3 % (0.0-1.0); %Eosinophils 1.1 % (0.0-10.0); %Lymphocytes 12.5 % (21.0-51.0); %Monocytes 6.2 % (0.0-10.0); %Neutrophils 79.9 % (42.0-75.0); Hemoglobin 12.3 g/dL (12.0-16.0); Mean Corpuscular HGB CONC 32.4 g/dL (32.0-36.0); Mean Corpuscular Hemoglobin 32.4 pg (27.0-31.0); Mean Corpuscular Volume 99.9 fL (78.0-98.0); Mean Platelet Volume 6.7 fL (7.4-10.4); Platelet Count 234 thou/uL (130-400); RBC Distribution Width 12.7 % (11.5-14.5); White Blood Cell (WBC) Count 11.1 thou/uL (4.8-10.8)
[2019-08-19 17:11] LABS: ALT (SGPT) 17 U/L (8-55); AST (SGOT) 17 U/L (5-34); Albumin 3.6 g/dL (3.4-4.8); Alkaline Phosphatase 103 U/L (40-110); Anion Gap 9 mmol/L (10-20); BUN (Urea Nitrogen) 8 mg/dL (9.8-20.1); Bilirubin, Total 0.7 mg/dL (0.2-1.2); Calc. Creatinine Clearance 0 mL/min (70-130); Calcium 8.2 mg/dL (7.8-10.44); Carbon Dioxide 27 mmol/L (23-31); Chloride 103 mmol/L (98-107); Estimated GFR-MDRD 67; Globulin 2.3 g/dL (2.4-3.5); Glucose 130 mg/dL (80-115); Potassium 3.6 mmol/L (3.5-5.1); Protein, Total 5.9 g/dL (6.0-8.3); Sodium 135 mmol/L (136-145)
--- NOTE | 2019-08-19 17:22 | RAD ---
Chest AP view INDICATION: Mechanical fall COMPARISON: February 05, 2019 FINDINGS: Lungs: Chronic lung changes are stable. Cardiac silhouette: The cardiomediastinal silhouette appears within normal limits. Pulmonary vasculature: Normal Pleural spaces: No pleural effusion or pneumothorax is demonstrated. Upper abdomen: No abnormality seen. Osseous structures: No acute osseous abnormality. Additional findings: None. IMPRESSION: No acute cardiopulmonary abnormality.
--- NOTE | 2019-08-19 17:22 | RAD ---
AP view of the pelvis INDICATION: Mechanical fall with left hip pain COMPARISON: None. FINDINGS: Bones: There is a comminuted, mildly displaced left hip intertrochanteric fracture. No additional fra ctures evident. Hips: There is mild degenerative change of both hips. SI joints and symphysis pubis: Normal appearing. Intrapelvic contents: There is anastomotic suture line seen within the lower central pelvis. There ar e mild scattered vascular calcifications. IMPRESSION: Comminuted, mildly displaced left hip intertrochanteric fracture.
--- NOTE | 2019-08-19 17:23 | RAD ---
XR Femur Lt 2 View STANDARD INDICATION: Fall with left hip pain COMPARISON: None. FINDINGS: Bones: There is a comminuted, mildly displaced left intertrochanteric fracture. No additional fractur es evident. There is diffuse osteopenia. Soft tissues: There is anastomotic suture line seen within the lower central pelvis. There are mild s cattered vascular calcifications. Joints: There is mild degenerative change of the left hip. There is mild degenerative change of the l eft knee. IMPRESSION: Comminuted left hip intertrochanteric fracture.
[2019-08-19 17:39] LABS: PTT 26.5 sec (22.9-36.1)
[2019-08-19 17:50] LABS: Prothrombin Time 13.1 sec (12.0-14.7)
--- NOTE | 2019-08-19 20:21 | HP ---
REQUESTING PHYSICIAN: Dr. Martinez. ATTENDING SURGEON: Dr. Lacy. CONSULTATIONS: 1. Orthopedics, Dr. Alvarez. 2. Cardiology, Dr. Roberts. HISTORY OF PRESENT ILLNESS: The patient is a 69-year-old woman, who was up on a chair in her garage, doing some cleaning when she lost her balance and fell onto her left hip. She denied any loss of consciousness. She was able to contact her , who came into the garage, found her and called 911. [facility] came to the scene and evaluated her. They felt due to her obvious hip injury that she would not tolerate the ride [place] country [place] to the hospital and at such time, an air ambulance was called and the patient was brought to the emergency department by air ambulance, where she underwent evaluation and examination and was noted to have a left femoral neck fracture, which time we were asked to evaluate the patient for admission and obtain Orthopedic consultation. The patient also had a cardiac stent and cardiac catheterization done on 07/24/[address] Roberts and we have also consulted him. ALLERGIES: CODEINE, HYDROCODONE, IBUPROFEN, FLAGYL, NAPROSYN, PENICILLIN, PSEUDOEPHEDRINE. THE PATIENT REPORTS THAT SHE GETS ITCHING WITH ALL THESE MEDICATIONS. SHE IS ABLE TO TAKE MUSCLE RELAXERS, TYLENOL, ULTRAM, AND MORPHINE. CURRENT MEDICATIONS: 1. Aspirin. 2. Atorvastatin. 3. Carvedilol. 4. Isosorbide mononitrate. 5. Losartan. 6. Potassium chloride. 7. Plavix. PAST MEDICAL HISTORY: Hypertension, coronary artery disease, COPD, hyper-cholesterol. SURGICAL HISTORY: Colon resection after small bowel obstruction and cardiac stent and cardiac catheterization x2. SOCIAL HISTORY: The patient lives independently at home with her spouse. She still continues to smoke cigarettes, though she states that it is less than a half a pack in a normal week. She drinks alcohol socially and denies drug use. REVIEW OF SYMPTOMS: Ten-point review of systems is negative except otherwise stated. The patient has not had any recent COVID exposures, fevers, or travel. PHYSICAL EXAMINATION: VITAL SIGNS: Blood pressure 185/63, heart rate 68, respirations 15, oxygen saturation 97% on room air, and temperature is 98.9. GENERAL: The patient is resting comfortably in bed. She is awake, alert, and oriented x3. Torey Coma Scale is 15. HEENT. Head is normocephalic and atraumatic. Eyes, extraocular motions intact. PERRLA bilaterally. Ears are atraumatic without discharge. Nose is atraumatic without discharge. Oropharynx is clear. NECK: Nontender. Trachea is midline with no JVD. CHEST: Lungs have scattered scant rhonchi bilaterally that does improve with cough. HEART: Regular rate and rhythm. ABDOMEN: Soft, flat, nontender with active bowel sounds. PELVIS: Stable with tenderness to palpation to the left hip, consistent with her fracture. EXTREMITIES: Neurovascularly intact x4. Left lower extremity is held slightly flexed and abducted. BACK: By report is atraumatic and nontender. LABORATORY FINDINGS: White blood cell count 11.1, hemoglobin 12.3, hematocrit 38.0, platelets 234. Sodium 135, potassium 3.6, chloride 103, CO2 of 27, BUN 8, creatinine 0.84, glucose 130. LFTs are unremarkable. PT 13, INR 1.0, PTT 27. RADIOGRAPHS: AP chest x-ray shows no acute cardiopulmonary abnormality. AP pelvis shows a comminuted mildly displaced left intertrochanteric fracture. Views of the left femur show a comminuted left hip intertrochanteric fracture. ASSESSMENT AND PLAN: 1. Status post fall from chair, approximately 2 to 3 feet. 2. Left intertrochanteric femur fracture. 3. Acute pain, secondary to above. 4. History of recent cardiac stent placement, on aspirin and Plavix. 5. History of hypertension, hyperlipidemia, chronic obstructive pulmonary disease. Plan will be to admit the patient to the surgical floor. We will make her n.p.o. after midnight, do pain control, pulmonary toilet, gastritis and mechanical venous thromboembolism prophylaxis. Dr. Alvarez was made aware of the patient and currently plans on taking the patient to the operating room tomorrow. The patient's underground drill operator, Dr. Roberts was also made aware of the patient's admission. The evaluation, examination, laboratory, and radiographic findings were discussed with Dr. Lacy prior to this dictation. Job ID: [id number]
[2019-08-19] MEDS ORDERED: Morphine 2 MG/ML VIAL SLOW IVP PRN (21:28)
[2019-08-19] MEDS ORDERED: Ondansetron PF 4 MG/2 ML Vial IVP PRN (21:28)
[2019-08-19] MEDS ORDERED: Dextrose 50% Abboject 50 ML SYRINGE SLOW IVP PRN (21:28)
[2019-08-19] MEDS ORDERED: Dextrose 5% in Water 1,000 ML IV PRN (21:28)
[2019-08-19] MEDS ORDERED: Ondansetron ODT 4 MG TAB PO PRN (21:28)
[2019-08-19 21:37] VITALS: BMI 23.3
[2019-08-19] MEDS: Morphine 4 MG/ML VIAL SLOW IVP PRN (21:46)
[2019-08-19] MEDS: Famotidine 20 MG TAB PO SCH (21:47)
[2019-08-19] MEDS: Sodium Chloride 0.9% 1,000 ML IV SCH (21:47)
[2019-08-19] MEDS: Cyclobenzaprine 10 MG TAB PO PRN (23:30)
[2019-08-19] MEDS: Acetaminophen 500 MG TAB PO SCH (23:30)
[2019-08-20] MEDS: Acetaminophen 500 MG TAB PO SCH ×4 (05:42→20:20)
[2019-08-20] MEDS: Sodium Chloride 0.9% 1,000 ML IV SCH (05:45)
[2019-08-20 05:49] LABS: #Eosinphils 0.1 thou/uL (0.0-0.7); #Lymphocytes 2.1 thou/uL (1.20-3.40); #Neutrophils 5.5 thou/uL (1.40-6.50); %Basophils 0.5 % (0.0-1.0); %Lymphocytes 24.6 % (21.0-51.0); %Monocytes 11.1 % (0.0-10.0); %Neutrophils 62.8 % (42.0-75.0); Hemoglobin 11.7 g/dL (12.0-16.0); Mean Corpuscular HGB CONC 32.4 g/dL (32.0-36.0); Mean Corpuscular Hemoglobin 32.6 pg (27.0-31.0); Mean Platelet Volume 7.2 fL (7.4-10.4); Platelet Count 178 thou/uL (130-400); RBC Distribution Width 12.8 % (11.5-14.5); Red Blood Cell (RBC) Count 3.59 mill/uL (4.20-5.40); White Blood Cell (WBC) Count 8.7 thou/uL (4.8-10.8)
[2019-08-20 06:01] LABS: Phosphorus 3.5 mg/dL (2.3-4.7)
[2019-08-20 06:05] LABS: Anion Gap 10 mmol/L (10-20); BUN (Urea Nitrogen) 6 mg/dL (9.8-20.1); Calc. Creatinine Clearance 58 mL/min (70-130); Calcium 7.8 mg/dL (7.8-10.44); Carbon Dioxide 24 mmol/L (23-31); Chloride 107 mmol/L (98-107); Estimated GFR-MDRD 77; Glucose 103 mg/dL (80-115); Magnesium 1.8 mg/dL (1.6-2.6); Potassium 3.8 mmol/L (3.5-5.1); Sodium 137 mmol/L (136-145)
[2019-08-20 07:12] LABS: Bacteria/HPF None Seen HPF (None Seen); Bilirubin Negative (Negative); Blood, Urine Negative (Negative); Clarity Clear (Clear); Glucose, Urine (Dipstick) Normal (Negative); Ketone, Urine Negative (Negative); Leukocyte Negative Leu/uL (Negative); Nitrite Negative (Negative); Protein, Urine (Dipstick) Negative (Neg-Trace); RBC/HPF 0-3 HPF (0-3); Specific Gravity, Urine 1.005 (1.002-1.036); Squamous Epithelial 0-3 HPF (0-3); Urobilinogen Normal mg/dL (Less than 2); WBC/HPF None Seen HPF (0-3)
[2019-08-20] MEDS ORDERED: Clindamycin/D5W 900 MG in Premix Bag 1 BAG IVPB SCH (07:30)
--- NOTE | 2019-08-20 08:55 | CON ---
DATE OF CONSULTATION: CHIEF COMPLAINT: Left hip pain. HISTORY OF PRESENT ILLNESS: Ms. Weller is a 69-year-old female, who was in her garage yesterday evening. She stepped up on a chair to swat some wasps. She lost her balance and fell. She fell backwards and landed on her left side. She had pain in her hip. She was unable to ambulate. She had difficulty with mobility, and her called 911. They brought her to the emergency department, where she was found to have a left intertrochanteric femur fracture. She has been admitted to the hospital. Of note, the patient has cardiac problems including coronary artery disease. She has had a recent MT and stents placed as recently as July 21. She is on Plavix for this. She denies having active chest pain or shortness of breath. She is fairly active around her house. She does not use a cane or a walker. ALLERGIES: TO CODEINE, HYDROCODONE, IBUPROFEN, FLAGYL, NAPROSYN, PENICILLIN, AND PSEUDOEPHEDRINE. MEDICATIONS: 1. Aspirin. 2. Atorvastatin. 3. Carvedilol. 4. Isosorbide mononitrate. 5. Losartan. 6. Potassium chloride. 7. Plavix. PAST MEDICAL HISTORY: Hypertension, coronary artery disease, COPD, and hypercholesterolemia. PAST SURGICAL HISTORY: The patient has had a colon resection after small-bowel obstruction. She has had 2 cardiac stents recently, on July 21 was her last one. REVIEW OF SYSTEMS: Negative for chest pain, shortness of breath, nausea, vomiting. She is positive for left hip pain. IMAGING STUDIES: X-rays of the pelvis and femur demonstrate a left intertrochanteric femur fracture with displacement and shortening. PHYSICAL EXAMINATION: VITAL SIGNS: Temperature is 98.1, pulse is 64, respiratory rate is 16, oxygen saturation 93%, and blood pressure 150/64. GENERAL: She is alert and oriented, lying supine, in no apparent distress. RESPIRATORY: Breathing comfortably. ABDOMEN: Soft, nontender, and nondistended. MUSCULOSKELETAL: The patient's left lower extremity is shortened and swollen at the hip. She has pain with any motion. She is able to flex and extend the feet and ankle. She has a palpable dorsalis pedis pulse. Upper extremities and right lower extremity are atraumatic. IMPRESSION: Left intertrochanteric femur fracture in a 69-year-old female. PLAN: 1. At this point, the patient will need to go to the operating room for intramedullary nail stabilization of the left femur. We will plan for this today. Goal of surgery is to promote early mobilization and prevent complications of prolonged bedrest as well as provide pain control. Risks to include infection, nerve or vascular injury, nonunion, malunion, DVT, PE, and other medical complications such as MT, stroke, or even . 2. The patient will have antibiotic prophylaxis and DVT prophylaxis. Job ID: [id number]
--- NOTE | 2019-08-20 09:27 | CON ---
DATE OF CONSULTATION: REASON FOR CONSULTATION: Preoperative clearance. HISTORY OF PRESENT ILLNESS: Ms. Weller is a very pleasant 69-year-old woman, who I have seen and evaluated in the past. She presented with acute myocardial infarction in 2018. She underwent successful stent placement to the mid right coronary artery. She also had a lesion noted to the LAD. This was treated medically, but until one month ago where she continued to have symptoms, felt to be due to continued coronary ischemia. She underwent successful stent implantation with a drug-coated stent on July 21. She states she recently fell after trying to swat dirt daubers. No syncope or presyncope present. PAST MEDICAL HISTORY: Hyperlipidemia, COPD, arthritis, colovaginal fistula, CAD, diabetes mellitus, carotid artery disease, PAD, , stent placement as above, hysterectomy, colonoscopy, cystoscopy. HOME MEDICATIONS: Include nitroglycerin, vitamin B12, aspirin, clopidogrel, losartan, potassium, atorvastatin, carvedilol, isosorbide. ALLERGIES: NONE. REVIEW OF SYSTEMS: A 10-point review of systems is reviewed and as above, otherwise negative. PHYSICAL EXAMINATION: GENERAL: Patient is a pleasant female, who is in no acute distress. The patient appears their stated age. VITAL SIGNS: Blood pressure 152/72, pulse 63, temperature 98.1. NEUROLOGIC: The patient is alert and oriented x3 with no focal neurologic deficits. HEENT: Sclerae without icterus. Mouth has moist mucous membranes with normal pallor. NECK: No JVD. Carotid upstroke brisk. No bruits bilaterally. LUNGS: Clear to auscultation with unlabored respirations. BACK: No scoliosis or kyphosis. CARDIAC: Regular rate and rhythm with normal S1 and S2. No S3 or S4 noted. No significant rubs, murmurs, thrills, or gallops noted throughout the precordium. PMI is not displaced. There is no parasternal heave. ABDOMEN: Soft, nontender, nondistended. No peritoneal signs present. No hepatosplenomegaly. No abnormal striae. EXTREMITIES: 2+ femoral and 2+ dorsalis pedis pulses. No cyanosis, clubbing, or edema. SKIN: No gross abnormalities. PERTINENT LABORATORY DATA: Hemoglobin 11.7. EKG; normal sinus rhythm with nonspecific ST-T wave changes. IMPRESSION: 1. Preoperative clearance. 2. Coronary artery disease. 3. Status post stent placement. RECOMMENDATIONS: At this point given that Ms. Weller has a recent placement of a drug-coated stent, we will continue with aspirin 81 q.a.m. in addition to Plavix [address] Alvarez who I had discussed this at length states she is okay operating given recent femur fracture on aspirin and Plavix. Otherwise, we will continue current medical therapy as prescribed. We will recommend adding Coreg 3.125 one p.o. b.i.d. The patient is considered low risk for intermediate risk procedure given no symptoms. Otherwise, I have no recommendations. Job ID: [id number]
[2019-08-20] MEDS ORDERED: Aspirin Chewable 81 MG TAB PO SCH (09:45)
[2019-08-20] MEDS ORDERED: Clopidogrel Bisulfate 75 MG TAB PO SCH (09:45)
[2019-08-20] MEDS: Carvedilol 6.25 MG TAB PO SCH ×2 (10:15→20:21)
[2019-08-20] MEDS: Famotidine 20 MG TAB PO SCH ×2 (10:16→20:21)
[2019-08-20] MEDS ORDERED: Rocuronium Bromide 10 MG/ML (10ML VIAL) ONE (11:45)
[2019-08-20] MEDS ORDERED: Lidocaine 1% PF 5 ML VIAL ONE (11:45)
[2019-08-20] MEDS ORDERED: PHENYLEPHRINE-NS 100 MCG/ML 10 ML SYRINGE ONE (11:45)
[2019-08-20] MEDS ORDERED: PROPOFOL 200 MG/20 ML VIAL ONE (11:45)
[2019-08-20] MEDS ORDERED: Glycopyrrolate 0.2 MG/ML 5 ML SYRINGE ONE (11:45)
[2019-08-20] MEDS ORDERED: Ondansetron PF 4 MG/2 ML Vial ONE (11:45)
[2019-08-20] MEDS ORDERED: Clindamycin/D5W 900 mg/50 ml Premix Bag ONE (13:43)
[2019-08-20] MEDS ORDERED: Levofloxacin 500 mg/D5W 100 ml Premix Bag ONE (13:43)
--- NOTE | 2019-08-20 14:28 | PRG ---
DATE OF SERVICE: 08/20/2019 RESIDENT: Katey Angel DO SUBJECTIVE: The patient is lying in bed, smiling. Complains of pain in her left hip area after she fell from a chair yesterday approximately 2 to 3 feet to the ground. The patient is in very good spirits. However, we would like to approach the topic of rehab versus home and would like more time to think about this. Her plan is to go to surgery today with Ortho for repair of this fracture and plan for discharge either to inpatient rehab or to home after she sees how she feels after surgery. OBJECTIVE: VITAL SIGNS: Temperature 98.1, heart rate 63, respiratory rate 16, O2 saturation 95% on room air, and blood pressure 153/72. GENERAL: Sitting up in bed, smiling, laughing, and joking. In no acute distress. HEENT: Head is normocephalic, atraumatic. CHEST: Lungs are clear bilaterally to auscultation with no wheezing or rhonchi. HEART: Regular rate and rhythm. ABDOMEN: Soft, nondistended, nontender to palpation. PELVIS: Stable with tenderness over the left hip consistent with her injuries. EXTREMITIES: Neurovascularly intact x4. She holds her left lower extremity slightly flexed and abducted. LABORATORY DATA: H and H 11.7 and 36.0, stable. Chemistry; potassium 3.8, sodium 137, creatinine 0.75, magnesium 1.8. ASSESSMENT: 1. Status post fall from chair level approximately 2 to 3 feet, day #1. 2. Left intertrochanteric femur fracture. The patient will be going to surgery for intramedullary nail stabilization of the left femur, planned for 08/[address] Alvarez. Cardiology, Dr. Roberts saw this patient due to the patient having a drug-coated stent and recommends continuation of aspirin 81 mg q.a.m. in addition to Plavix [address] Alvarez and Dr. Roberts have discussed this at length and stated it is okay to be operating given recent femur fracture, on aspirin and Plavix. Cardiology also recommended adding Coreg 3.125 mg p.o. b.i.d. after surgery and deemed her low risk for mediate cardiovascular event during the surgery. 3. Acute pain secondary to left intertrochanteric femur fracture. 4. History of recent cardiac stent placement, on aspirin and Plavix. See above note about continuation of these. 5. History of hypertension. 6. Hyperlipidemia. 7. Chronic obstructive pulmonary disease. PLAN: The patient to be taken to the OR by Dr. Alvarez today for repair of the left femur. Dr. Roberts has deemed her low risk for immediate cardiac event during this procedure. Dr. Roberts and Dr. Alvarez have had discussion at length and deem her to take Plavix and aspirin even after this injury. The patient has been seen and evaluated by Dr. Lacy with Trauma Team on morning rounds, and he is in agreement with the above-stated plan. Job ID: [id number]
[2019-08-20] MEDS ORDERED: Fentanyl 100 MCG/2 ML VIAL ONE ×3 (16:23→18:40)
--- NOTE | 2019-08-20 17:13 | OP ---
DATE OF PROCEDURE: 08/20/2019 OPERATION PERFORMED: Left femur intermedullary nail. PREOPERATIVE DIAGNOSIS: Left femur intratrochanteric fracture. POSTOPERATIVE DIAGNOSIS: Left femur intratrochanteric fracture. COMPLICATIONS: None. ESTIMATED BLOOD LOSS: Minimal. TECHNICAL SERVICES REPRESENTATIVE: Nicolas Pagan PA-C. IMPLANTS: Synthes 11-mm short trochanteric nail. INDICATIONS: Ms. Weller is a 69-year-old female who has fallen and fractured her left proximal femur. She has been indicated for intermedullary nail fixation to restore anatomic alignment and promote healing. Risks have been reviewed in detail. She has elected to proceed with the operation. DESCRIPTION OF PROCEDURE: Ms. Weller was identified in the preoperative holding area. Her correct extremity was marked. She was carried to the operating room. She was positioned supine. General anesthesia was induced. A multidisciplinary time-out was performed. She was given intravenous antibiotics. We began the procedure by making a small incision over the tip of the greater trochanter. We dissected down through the subcutaneous tissues to the tip of the trochanter and inserted a guidewire. We over-reamed the guidewire. We then inserted an 11-mm trochanteric nail. We then used the appropriate guide to place a wire in the centered position of the femoral head. This was overdrilled. We impacted a helical blade. We then placed a distal Crosslock screw. We took final x-ray images in orthogonal planes, confirming reduction and hardware was placed appropriately. Wound was thoroughly irrigated with copious lavage. The patient was taken to the recovery room in good condition. Job ID: [id number]
[2019-08-20] MEDS ORDERED: SUGAMMADEX SODIUM 200 MG/2 ML VIAL ONE (17:43)
[2019-08-20] MEDS ORDERED: Promethazine HCl 25 MG/ML VIAL SLOW IVP PRN (17:54)
[2019-08-20] MEDS ORDERED: Ondansetron HCl/PF 4 MG/2 ML Vial IVP PRN (17:54)
[2019-08-20] MEDS ORDERED: Promethazine HCl 25 MG/ML VIAL IM PRN (17:54)
[2019-08-20] MEDS ORDERED: Labetalol HCl 100 MG/20 ML VIAL ONE (18:04)
[2019-08-20] MEDS ORDERED: Hydrocortisone Sod Succ/PF 100 mg/2 ml Vial ONE (18:23)
[2019-08-20] MEDS ORDERED: methylPREDNISolone Sod Succ/PF 125 MG/2 ML VIAL ONE (18:27)
--- NOTE | 2019-08-20 20:02 | RAD ---
RADIOGRAPH LEFT HIP 2 VIEWs: 08/20/19 HISTORY: 69-year-old female with acute, traumatic proximal femoral fracture. COMPARISON: Femur radiograph of 08/19/19. FINDINGS: Small field of view fluoroscopic spot images obtained in OR, a total of four views. There has been mi ld interval improvement in the mild varus angulation of the intertrochanteric fracture, which is now traversed with a gamma nail with upper tip in the femoral head, and femoral intramedullary tail compo nent that reaches the junction between proximal and middle thirds of the femoral diaphysis, with a si ngle distal stabilization screw. IMPRESSION: Interval gamma nail fixation of acute, traumatic, displaced intertrochanteric fracture of the left pr oximal femur. POS: JIN
[2019-08-20] MEDS: Clindamycin/D5W 900 MG in Premix Bag 1 BAG IVPB SCH (21:47)
[2019-08-20] MEDS: Morphine 4 MG/ML VIAL SLOW IVP PRN (22:53)
[2019-08-21] MEDS: Acetaminophen 500 MG TAB PO SCH ×4 (02:20→20:40)
[2019-08-21 05:23] LABS: #Lymphocytes 0.6 thou/uL (1.20-3.40); #Monocytes 0.5 thou/uL (0.11-0.59); #Neutrophils 8.7 thou/uL (1.40-6.50); %Eosinophils 0.1 % (0.0-10.0); %Lymphocytes 5.7 % (21.0-51.0); %Monocytes 5.1 % (0.0-10.0); %Neutrophils 89.1 % (42.0-75.0); Hemoglobin 8.6 g/dL (12.0-16.0); Mean Corpuscular HGB CONC 31.5 g/dL (32.0-36.0); Mean Corpuscular Hemoglobin 31.6 pg (27.0-31.0); Mean Platelet Volume 7.2 fL (7.4-10.4); Platelet Count 173 thou/uL (130-400); RBC Distribution Width 12.4 % (11.5-14.5); Red Blood Cell (RBC) Count 2.73 mill/uL (4.20-5.40); White Blood Cell (WBC) Count 9.8 thou/uL (4.8-10.8)
[2019-08-21 05:42] LABS: Anion Gap 12 mmol/L (10-20); BUN (Urea Nitrogen) 10 mg/dL (9.8-20.1); Calc. Creatinine Clearance 52 mL/min (70-130); Carbon Dioxide 23 mmol/L (23-31); Chloride 100 mmol/L (98-107); Estimated GFR-MDRD 68; Glucose 155 mg/dL (80-115); Magnesium 1.6 mg/dL (1.6-2.6); Phosphorus 3.2 mg/dL (2.3-4.7); Potassium 3.5 mmol/L (3.5-5.1); Sodium 131 mmol/L (136-145)
[2019-08-21] MEDS: Clindamycin/D5W 900 MG in Premix Bag 1 BAG IVPB SCH (05:42)
[2019-08-21] MEDS ORDERED: Potassium Phosphate 15 MMOL in Sodium Chloride 0.9% 250 ML 250 ML IVPB SCH (08:00)
[2019-08-21] MEDS ORDERED: Magnesium 2 GM/50 ML 2 GM in Premix Bag 1 BAG IVPB SCH (09:00)
[2019-08-21] MEDS ORDERED: Clopidogrel Bisulfate 75 MG TAB PO SCH ×2 (09:00→16:45)
[2019-08-21] MEDS: traMADol HCl 50 MG TAB PO SCH ×3 (09:10→20:40)
[2019-08-21] MEDS ORDERED: Hydrocortisone Sod Succ/PF 100 mg/2 ml Vial IVP SCH (09:30)
[2019-08-21 11:53] LABS: Hemoglobin 7.1 g/dL (12.0-16.0)
[2019-08-21] MEDS: Hydrocortisone Sod Succ/PF 100 mg/2 ml Vial IVP SCH ×3 (12:10→23:04)
--- NOTE | 2019-08-21 13:42 | PRG ---
DATE OF SERVICE: 08/21/2019 SUBJECTIVE: I have seen Ms. Weller on 2 separate occasions today. This morning, she appeared pale. Her hemoglobin had dropped from 11 to 8. I held her aspirin and Plavix this morning in anticipation of a 2nd CBC at noon. On followup CBC, it was 7.1. She is now in the process of receiving 2 units of packed red blood cells. She is currently asymptomatic except for weakness and fatigue. OBJECTIVE: VITAL SIGNS: Blood pressure 106/67, pulse 72, and temperature 97.7. LUNGS: Clear to auscultation. HEART: Regular rate and rhythm. ABDOMEN: Soft, nontender, nondistended. EXTREMITIES: No edema. IMPRESSION: 1. Anemia. 2. Recent femur fracture, status post judy placement. 3. Coronary artery disease. 4. Status post stent placement. RECOMMENDATIONS: Given that Ms. Weller has had a significant drop in her hemoglobin, we would recommend only adding Plavix today. We would recommend 2 units of packed red blood cells given that she was hypotensive, but now has improved. We would like to restart aspirin and Plavix in a.m. as long as she is stable. Otherwise, I have no further recommendations. Job ID: [id number]
[2019-08-21] MEDS: Aspirin 81 mg Enteric Coated Tablet PO SCH (14:34)
[2019-08-21] MEDS: Carvedilol 6.25 MG TAB PO SCH ×2 (14:53→20:37)
--- NOTE | 2019-08-21 17:35 | PRG ---
DATE OF SERVICE: 08/21/2019 SUBJECTIVE: Ms. Weller is a 69-year-old female, status post mechanical fall with left hip fracture, status post fixation, postop day #1. The patient also has coronary artery disease, status post stent placement. The patient has been suffered from continued bleeding from surgical site this morning. Hemoglobin dropped from 12 to 7.1 in which she was transferred 2 units of blood. She also does have low blood pressure and cortisol level is 2.5. Her urine is marginal. Other than that, she also complained of pain with movement. She tolerated her diet. She developed no fever or shortness of breath. OBJECTIVE: GENERAL: Currently, the patient is lying on bed. No acute respiratory distress. VITAL SIGNS: Temperature 97.7, heart rate 72, respiratory rate 14, O2 saturations 95% on room air, and blood pressure 106/67. LUNGS: Clear bilaterally. HEART: Regular rate and rhythm. ABDOMEN: Soft and nondistended. EXTREMITIES: Postop dressing clean and dry. The patient just got dressing change a moment ago. LABORATORY DATA: Hemoglobin in the morning 8.6, at noon at 1141 hours is 7.1. Serum cortisone 2.5. ASSESSMENT: 1. Status post ground-level fall. 2. Left hip fracture, status post repair, postop day #1. 3. Coronary artery disease with stent placement. 4. Acute blood loss anemia. PLAN: The patient will have 2 units of blood transfusion, on aspirin and Plavix ; however, Dr. Roberts decided to continue Plavix today. The patient will have hydrocortisone IV for adrenal insufficiency. We will recheck hemoglobin tonight. we will adjust pain medications tramadol and gabapentin. The patient was seen and evaluated with Dr. Lacy on round this morning. Job ID: [id number] [facility]
[2019-08-21] MEDS: Atorvastatin Calcium 40 MG TAB PO SCH (20:40)
[2019-08-21] MEDS: Gabapentin 300 MG CAP PO SCH (20:40)
[2019-08-21] MEDS: Cyclobenzaprine 10 MG TAB PO PRN (20:55)
[2019-08-22 00:28] LABS: Hemoglobin 11.3 g/dL (12.0-16.0); Platelet Count 123 thou/uL (130-400)
[2019-08-22] MEDS: traMADol HCl 50 MG TAB PO SCH ×4 (04:00→20:50)
[2019-08-22] MEDS: Acetaminophen 500 MG TAB PO SCH ×4 (04:00→20:49)
[2019-08-22] MEDS: Hydrocortisone Sod Succ/PF 100 mg/2 ml Vial IVP SCH (06:08)
[2019-08-22 06:14] LABS: #Lymphocytes 1.1 thou/uL (1.20-3.40); #Neutrophils 13.8 thou/uL (1.40-6.50); %Eosinophils 0.1 % (0.0-10.0); %Lymphocytes 6.8 % (21.0-51.0); %Monocytes 6.3 % (0.0-10.0); %Neutrophils 86.8 % (42.0-75.0); Hemoglobin 10.2 g/dL (12.0-16.0); Mean Corpuscular HGB CONC 33.4 g/dL (32.0-36.0); Mean Corpuscular Hemoglobin 30.1 pg (27.0-31.0); Mean Corpuscular Volume 90.1 fL (78.0-98.0); Mean Platelet Volume 7.5 fL (7.4-10.4); Platelet Count 126 thou/uL (130-400); RBC Distribution Width 16.4 % (11.5-14.5); White Blood Cell (WBC) Count 15.8 thou/uL (4.8-10.8)
[2019-08-22 06:33] LABS: Anion Gap 9 mmol/L (10-20); BUN (Urea Nitrogen) 13 mg/dL (9.8-20.1); Calc. Creatinine Clearance 55 mL/min (70-130); Calcium 8.2 mg/dL (7.8-10.44); Carbon Dioxide 28 mmol/L (23-31); Chloride 102 mmol/L (98-107); Estimated GFR-MDRD 72; Glucose 152 mg/dL (80-115); Phosphorus 3.8 mg/dL (2.3-4.7); Potassium 4.4 mmol/L (3.5-5.1); Sodium 135 mmol/L (136-145)
[2019-08-22] MEDS ORDERED: Polyethylene Glycol 3350 17 GM Packet PO PRN (07:53)
[2019-08-22] MEDS ORDERED: Carvedilol 6.25 MG TAB PO SCH (09:00)
[2019-08-22] MEDS ORDERED: Carvedilol 3.125 MG TAB PO SCH (09:00)
[2019-08-22] MEDS: Gabapentin 300 MG CAP PO SCH ×2 (09:24→20:50)
[2019-08-22] MEDS: Clopidogrel Bisulfate 75 MG TAB PO SCH (09:24)
[2019-08-22] MEDS: Potassium Chloride 10 MEQ TAB PO SCH (09:24)
[2019-08-22] MEDS: Carvedilol 6.25 MG TAB PO SCH ×2 (09:29→20:50)
[2019-08-22] MEDS ORDERED: Aspirin 81 mg Enteric Coated Tablet ONE (09:36)
[2019-08-22] MEDS ORDERED: Aspirin Chewable 81 MG TAB ONE (09:36)
[2019-08-22] MEDS: Aspirin 81 mg Enteric Coated Tablet PO SCH (09:38)
[2019-08-22 19:10] LABS: Hemoglobin 7.6 g/dL (12.0-16.0); Platelet Count 133 thou/uL (130-400)
[2019-08-22] MEDS ORDERED: Hydrocortisone Sod Succ/PF 100 mg/2 ml Vial IVP SCH (19:30)
[2019-08-22] MEDS: Doxycycline 100 MG CAP PO SCH (20:49)
[2019-08-22] MEDS: Atorvastatin Calcium 40 MG TAB PO SCH (20:50)
--- NOTE | 2019-08-23 01:48 | PRG ---
DATE OF SERVICE: 08/23/2019 SUBJECTIVE: The patient remains on the surgical floor. She is status post a ground level fall in which she sustained a left intertrochanteric femur fracture. She underwent surgery for that and she is hospital day #2 from that. Unfortunately, the patient had recent cardiac stents placed and is requiring dual therapy with aspirin and Plavix causing her to have drops in her hemoglobin and hematocrit. She has been transfused 2 units so far this hospital stay and is currently due to begin yet another transfusion due to her drop in hemoglobin. She was able to work with therapy today. She is tolerating a diet and her pain is controlled. PHYSICAL EXAMINATION: VITAL SIGNS: Stable. She did have some episodes of systolic less than 90. The patient is afebrile. GENERAL: The patient is resting comfortably in bed. She is asleep at the time of my visit. She is being transfused her blood at this time. She appears in no distress. RESPIRATIONS: Appear nonlabored. ASSESSMENT/PLAN: 1. Status post fall from chair approximately 2 to 3 feet. 2. Status post open reduction and internal fixation of left intertrochanteric femur fracture. 3. History of recent cardiac stent placement, on aspirin and Plavix. 4. History of hypertension, hyperlipidemia, and chronic obstructive pulmonary disease. PLAN: Will be to continue transfusion of 1 unit of packed red blood cells. We will repeat her hemoglobin and hematocrit approximately an hour after the transfusion is completed. We will continue to encourage physical and occupational therapy and discuss placement. Job ID: [id number]
[2019-08-23] MEDS: traMADol HCl 50 MG TAB PO SCH ×4 (03:52→21:03)
[2019-08-23] MEDS: Acetaminophen 500 MG TAB PO SCH ×4 (03:52→21:02)
[2019-08-23] MEDS ORDERED: Hydrocortisone Sod Succ/PF 100 mg/2 ml Vial IVP SCH (04:00)
[2019-08-23 05:31] LABS: #Monocytes 0.9 thou/uL (0.11-0.59); #Neutrophils 11.6 thou/uL (1.40-6.50); %Basophils 0.1 % (0.0-1.0); %Eosinophils 0.1 % (0.0-10.0); %Lymphocytes 7.6 % (21.0-51.0); %Monocytes 6.5 % (0.0-10.0); %Neutrophils 85.6 % (42.0-75.0); Hemoglobin 10.1 g/dL (12.0-16.0); Mean Corpuscular HGB CONC 34.6 g/dL (32.0-36.0); Mean Corpuscular Hemoglobin 31.6 pg (27.0-31.0); Mean Corpuscular Volume 91.1 fL (78.0-98.0); Mean Platelet Volume 7.5 fL (7.4-10.4); Platelet Count 131 thou/uL (130-400); RBC Distribution Width 15.2 % (11.5-14.5); White Blood Cell (WBC) Count 13.6 thou/uL (4.8-10.8)
[2019-08-23 05:53] LABS: Anion Gap 9 mmol/L (10-20); BUN (Urea Nitrogen) 18 mg/dL (9.8-20.1); Calc. Creatinine Clearance 50 mL/min (70-130); Calcium 8.2 mg/dL (7.8-10.44); Carbon Dioxide 29 mmol/L (23-31); Chloride 101 mmol/L (98-107); Estimated GFR-MDRD 65; Glucose 142 mg/dL (80-115); Magnesium 2.1 mg/dL (1.6-2.6); Phosphorus 3.5 mg/dL (2.3-4.7); Potassium 4.6 mmol/L (3.5-5.1); Sodium 134 mmol/L (136-145)
[2019-08-23] MEDS: Potassium Chloride 10 MEQ TAB PO SCH (08:18)
[2019-08-23] MEDS: Clopidogrel Bisulfate 75 MG TAB PO SCH (08:18)
[2019-08-23] MEDS: Gabapentin 300 MG CAP PO SCH ×2 (08:18→21:04)
[2019-08-23] MEDS: Carvedilol 6.25 MG TAB PO SCH ×2 (08:18→21:03)
[2019-08-23] MEDS: Aspirin 81 mg Enteric Coated Tablet PO SCH (08:18)
[2019-08-23] MEDS: Doxycycline 100 MG CAP PO SCH ×2 (08:25→21:03)
[2019-08-23] MEDS: Ascorbic Acid 500 mg Chewable Tablet PO SCH ×2 (08:40→21:03)
[2019-08-23] MEDS: Cyclobenzaprine 10 MG TAB PO PRN ×2 (10:01→21:02)
[2019-08-23] MEDS: traMADol HCl 50 MG TAB PO PRN (14:08)
[2019-08-23 14:21] LABS: Hemoglobin 9.7 g/dL (12.0-16.0); Platelet Count 154 thou/uL (130-400)
[2019-08-23] MEDS: Ferrous Sulfate 325 MG TAB PO SCH (16:42)
--- NOTE | 2019-08-23 17:05 | PRG ---
DATE OF SERVICE: 08/23/2019 SUBJECTIVE: Ms. Weller is a 69-year-old female, status post ground level fall. She sustained left hip fracture. She also has a history of coronary artery disease, stenting on July 24, 2019, currently on aspirin and Plavix. The patient underwent left hip fixation, postop day 3 today. The patient has been suffered from bleeding from the incision site in the past few days. She has been transfused 3 units of blood totally. Cardiology, Dr. Roberts wanted to resume Plavix and aspirin due to the fact that the patient's stenting is too new and we had to accept the risks of bleeding. However, during last night, the patient's dressing is not soaking and hopefully her bleeding have been stopped for now. Her vital signs have been stable. She tolerated with her regular diet. OBJECTIVE: GENERAL: Currently, the patient is lying in bed comfortable with no acute respiratory distress. VITAL SIGNS: Blood pressure 140 to 170 systolic, heart rate 63, SpO2 of 95% on room air, and respiratory rate 14. LUNGS: Clear bilaterally. HEART: Regular rate and rhythm. ABDOMEN: Soft, nondistended. EXTREMITIES: Neurovascularly intact x4. Postop dressing clean, dry, intact. NEUROLOGIC: No focal neurology deficits. ASSESSMENT: 1. Status post mechanical fall. 2. Left hip fracture, status post repair postop day 3. 3. Coronary artery disease with stenting on July 24, 2019, currently on Plavix and aspirin. 4. Acute blood loss anemia, stable. PLAN: Continue supportive care. Continue pain control. Continue working with Physical Therapy and Occupational Therapy. We will continue to monitor H and H today. Anticipate discharge to rehabilitation facility tomorrow. Job ID: [id number] [facility]
--- NOTE | 2019-08-23 17:16 | PRG ---
DATE OF SERVICE: 08/22/2019 SUBJECTIVE: Ms. Weller is a 69-year-old female, status post mechanical fall, on aspirin and Plavix. The patient suffered from a left hip fracture, status post left hip fracture fixation, postop day #3 today. The patient had been suffering from hemorrhage from the surgical site in which her hemoglobin dropped to 7.1 yesterday. The patient got 2 units of blood transfusion. The patient still reported with surgical site oozing this morning. She got 3-time dressing change yesterday due to oozing of the surgical site from the left hip. Regional Sales Engineer, Dr. Roberts restarted aspirin today and continued Plavix, accepts the risk of hemorrhage because the patient has coronary artery disease with stenting benefits outweigh risk of incision bleeding. We will recheck H and H for possibly another blood transfusion. out of school hours care worker is working for rehabilitation facility placement. OBJECTIVE: GENERAL: Currently, the patient is lying in bed, comfortable, with no acute respiratory distress. VITAL SIGNS: Temperature is 97.7, heart rate 63, respiratory rate 12, O2 saturation 99% on 2 L, and blood pressure 126/61. LUNGS: Clear bilaterally. HEART: Regular rate and rhythm. ABDOMEN: Soft, nondistended. EXTREMITIES: Neurovascularly intact x4. NEUROLOGIC: No focal neurology deficits. Postop dressing clean and dry because the patient got the dressing change at momentarily. LABORATORY: Shows hemoglobin this morning 10.2. Sodium 135, potassium 4.4. Creatinine 0.79. PLAN: Continue supportive care. Continue pain control. We will resume blood pressure medication with hold parameters, at which point we will work with the patient for placement in rehabilitation facility. Job ID: [id number] [facility]
--- NOTE | 2019-08-23 17:41 | PDOC.CPN ---
- Subjective Date: 08/23/19 Time: 17:47 Interval history: The pt seen and examined. No overnight events. No cardiac complaints. She has been using IS 5 times/day; Strongly recommend to use IS at least 5-10 times every meal times or q1h if possible - Objective Allergies/Adverse Reactions: Allergies Allergy/AdvReac Type Severity Reaction Status Date / Time chlorpheniramine Allergy itch Verified 07/17/19 11:12 [From Bonnie] codeine Allergy itch Verified 07/17/19 11:12 hydrocodone Allergy itch Verified 07/17/19 11:12 ibuprofen Allergy itch Verified 07/17/19 11:12 metronidazole Allergy itch Verified 07/17/19 11:12 naproxen [From Naprosyn] Allergy itch Verified 07/17/19 11:12 oxymetazoline [From Bonnie] Allergy itch Verified 07/17/19 11:12 Penicillins Allergy itch Verified 07/17/19 11:12 pheniramine [From Bonnie] Allergy itch Verified 07/17/19 11:12 phenylephrine [From Bonnie] Allergy itch Verified 07/17/19 11:12 pseudoephedrine Allergy itch Verified 07/17/19 11:12 [From Bonnie] Visit Medications: Current Medications Acetaminophen (Tylenol) 1,000 mg PO 0300,0900,1500,2100 [facility] Last Admin: 08/23/19 14:07 Dose: 1,000 mg Albuterol/Ipratropium (Duoneb) 3 ml NEB Q4H PRN PRN Reason: Wheezing Ascorbic Acid (Vitamin C) 500 mg PO BID [facility] Last Admin: 08/23/19 08:40 Dose: 500 mg Aspirin (Ecotrin) 81 mg PO DAILY [facility] Last Admin: 08/23/19 08:18 Dose: 81 mg Atorvastatin Calcium (Lipitor) 40 mg PO HS [facility] Last Admin: 08/22/19 20:50 Dose: 40 mg Carvedilol (Coreg) 3.125 mg PO BID [facility] Last Admin: 08/23/19 08:18 Dose: 3.125 mg Clopidogrel Bisulfate (Plavix) 75 mg PO DAILY [facility] Last Admin: 08/23/19 08:18 Dose: 75 mg Cyclobenzaprine HCl (Flexeril) 5 mg PO TID PRN PRN Reason: Muscle Spasm Last Admin: 08/23/19 10:01 Dose: 5 mg Dextrose/Water (Dextrose 50%) 25 gm SLOW IVP PRN PRN PRN Reason: Hypoglycemia Doxycycline Hyclate (Vibramycin) 100 mg PO BID [facility] Last Admin: 08/23/19 08:25 Dose: 100 mg Ferrous Sulfate (Feosol) 325 mg PO BID[facility] Last Admin: 08/23/19 16:42 Dose: 325 mg Gabapentin (Neurontin) 300 mg PO BID [facility] Last Admin: 08/23/19 08:18 Dose: 300 mg Glucagon (Glucagon) 1 mg IM PRN PRN PRN Reason: Hypoglycemia Dextrose/Water (D5w) 1,000 mls @ 0 mls/hr IV .Q0M PRN PRN Reason: Hypoglycemia Ondansetron HCl (Zofran Odt) 4 mg PO Q6H PRN PRN Reason: Nausea/Vomiting Ondansetron HCl (Zofran) 4 mg IVP Q6H PRN PRN Reason: Nausea Polyethylene Glycol (Miralax) 17 gm PO DAILY PRN PRN Reason: Constipation Last Admin: 08/23/19 15:24 Dose: 17 gm Potassium Chloride (Klor-Con 10) 10 meq PO DAILY [facility] Last Admin: 08/23/19 08:18 Dose: 10 meq Sodium Chloride (Flush - Normal Saline) 10 ml IVF PRN PRN PRN Reason: Saline Flush Tramadol HCl (Ultram) 50 mg PO Q6H [facility] Last Admin: 08/23/19 14:08 Dose: 50 mg Tramadol HCl (Ultram) 50 mg PO Q6H PRN PRN Reason: Breakthrough Pain Last Admin: 08/23/19 14:08 Dose: 50 mg Vital Signs & Weight: Vital Signs Temp Pulse Resp BP BP Pulse Ox 08/23/19 16:00 98.4 F 61 14 147/69 H 96 08/23/19 11:50 98.3 F 63 14 132/59 L 95 08/23/19 08:18 113/61 08/23/19 08:01 98.0 F 71 14 130/68 95 Weight 112 lb - Physical Exam General: alert & oriented x3 HEENT: mucus membranes moist Neck: supple neck Cardiac: regular rate and rhythm Lungs: clear to auscultation, decreased breath sounds Neuro: cranial nerve 2-12 intact - Labs Result Diagrams: 08/23/19 13:54 08/23/19 05:10 - Assessment/Plan Assessment/Plan: 1. s/p Lt hip fx and repair on 08/20/2019 2. CAD with stent in mid RCA in 2019 and s/p LYNDA in LAD on 07/24/2019 - Plavix and ASA was resumed from yesterday; so far no significant bleeding from the Sx site; On Coreg 3.125mg BID, Liptor. 3. HTN - stable 4. DM type 2 5. HLD - on statin 6. COPD - stable with RA; Strongly recommend to use IS at least 5-10 times every meal times or q1h if possible 7. Current smoker - smoking cessation given to the pt MAR reviewed * Dr Roberts' pt
[2019-08-23] MEDS: Atorvastatin Calcium 40 MG TAB PO SCH (21:02)
--- NOTE | 2019-08-24 00:43 | PRG ---
DATE OF SERVICE: 08/23/2019 SUBJECTIVE: The patient was seen this evening during rounds. She is resting in bed comfortably and asleep with no signs of acute distress. Nursing reported no acute events. OBJECTIVE: VITAL SIGNS: Temperature 98.5, pulse 88, respirations 16, oxygen saturation 96% on room air, blood pressure 130/84. GENERAL: Well-appearing elderly female, lying in bed, asleep with no signs of acute distress. PULMONARY: Equal chest rise and fall. No signs of acute respiratory distress. ASSESSMENT: 1. Status post mechanical fall, on aspirin and Plavix. 2. Left intertrochanteric femur fracture, status post repair. 3. Acute blood loss anemia, stable. 4. History of recent cardiac stents, hypertension, coronary artery disease, chronic obstructive pulmonary disease, and hyperlipidemia. PLAN: Continue current diet and pain regimen. Continue physical and occupational therapy. Continue aspirin and Plavix per the recommendations of Dr. Roberts. Repeat blood work in the morning. Job ID: [id number]
[2019-08-24] MEDS: Acetaminophen 500 MG TAB PO SCH ×4 (04:14→21:05)
[2019-08-24] MEDS: traMADol HCl 50 MG TAB PO SCH ×4 (04:15→21:06)
[2019-08-24 05:40] LABS: Hemoglobin 9.5 g/dL (12.0-16.0); Mean Corpuscular HGB CONC 33.1 g/dL (32.0-36.0); Mean Corpuscular Hemoglobin 30.7 pg (27.0-31.0); Mean Corpuscular Volume 92.8 fL (78.0-98.0); Mean Platelet Volume 6.9 fL (7.4-10.4); Platelet Count 177 thou/uL (130-400); RBC Distribution Width 15.6 % (11.5-14.5); White Blood Cell (WBC) Count 12.3 thou/uL (4.8-10.8)
[2019-08-24 06:07] LABS: Anion Gap 7 mmol/L (10-20); BUN (Urea Nitrogen) 13 mg/dL (9.8-20.1); Calc. Creatinine Clearance 50 mL/min (70-130); Calcium 8.3 mg/dL (7.8-10.44); Carbon Dioxide 33 mmol/L (23-31); Chloride 100 mmol/L (98-107); Estimated GFR-MDRD 66; Glucose 104 mg/dL (80-115); Phosphorus 2.1 mg/dL (2.3-4.7); Potassium 4.2 mmol/L (3.5-5.1); Sodium 136 mmol/L (136-145)
[2019-08-24] MEDS: Potassium Chloride 10 MEQ TAB PO SCH (08:46)
[2019-08-24] MEDS: Gabapentin 300 MG CAP PO SCH ×2 (08:46→21:03)
[2019-08-24] MEDS: Doxycycline 100 MG CAP PO SCH ×2 (08:46→21:03)
[2019-08-24] MEDS: Senokot S 8.6-50 MG TAB PO SCH ×2 (08:46→21:03)
[2019-08-24] MEDS: Ferrous Sulfate 325 MG TAB PO SCH ×2 (08:46→16:52)
[2019-08-24] MEDS: Clopidogrel Bisulfate 75 MG TAB PO SCH (08:46)
[2019-08-24] MEDS: Carvedilol 6.25 MG TAB PO SCH ×2 (08:47→21:03)
[2019-08-24] MEDS: Ascorbic Acid 500 mg Chewable Tablet PO SCH ×2 (08:47→21:05)
[2019-08-24] MEDS: Aspirin 81 mg Enteric Coated Tablet PO SCH (08:47)
[2019-08-24] MEDS: Polyethylene Glycol 3350 17 GM Packet PO SCH (08:52)
[2019-08-24] MEDS: Losartan 25 MG TAB PO SCH ×2 (08:52→21:05)
--- NOTE | 2019-08-24 15:49 | PRG ---
DATE OF SERVICE: 08/24/2019 SUBJECTIVE: Ms. Weller is doing better. Blood pressure has been fluctuant. Her hemoglobin is stabilized. No current complaints. She is currently back on aspirin in addition to Plavix. She is also on atorvastatin in addition to carvedilol. OBJECTIVE: VITAL SIGNS: Blood pressure 167/67, pulse 68, and temperature 98.1. LUNGS: Clear to auscultation. HEART: Regular rate and rhythm. ABDOMEN: Soft, nontender, nondistended. EXTREMITIES: No edema. IMPRESSION: 1. Recent femur fracture. 2. Coronary artery disease. 3. Status post stent placement. RECOMMENDATIONS: 1. Continue aspirin and Plavix. 2. Add low-dose Norvasc at 2.5 mg one p.o. q.a.m., first dose now. Job ID: [id number]
--- NOTE | 2019-08-24 19:31 | PRG ---
DATE OF SERVICE: 08/24/2019 This is Dariel Cuevas PA-C dictating a report for Dr. Lacy. SUBJECTIVE: Ms. Weller is a 69-year-old female, status post ground level fall. She sustained left hip fracture. She underwent left hip fracture fixation. She also suffered from bleeding from the incision site for the past few days. However, her bleeding has been stopped. Her hemoglobin has been stable. She is able to walk around the floor. She tolerates her regular diet. She requests a private room in rehabilitation facility. OBJECTIVE: GENERAL: Currently, the patient is lying in bed comfortable. No acute respiratory distress. VITAL SIGNS: Stable. LUNGS: Clear bilaterally. HEART: Regular rate and rhythm. ABDOMEN: Soft and nondistended. EXTREMITIES: Neurovascularly intact x4. NEUROLOGIC: No focal neurologic deficits. Postop dressing clean and dry. ASSESSMENT: 1. Status post ground level fall. 2. Left hip fracture, status post repair, postop day 4. 3. Coronary artery disease, stenting on July 24, 2019, currently on Plavix and aspirin. 4. Acute blood loss anemia, stable. PLAN: Continue supportive care. Continue pain control. Continue working with Physical Therapy and Occupational Therapy. Anticipate discharge to rehabilitation facility tomorrow because rehab anticipate they will have a private room available tomorrow. The patient was seen and evaluated with Dr. Lacy on round this morning. Job ID: [id number]
[2019-08-24] MEDS: Atorvastatin Calcium 40 MG TAB PO SCH (21:03)
[2019-08-24] MEDS: Cyclobenzaprine 10 MG TAB PO PRN (21:05)
[2019-08-24] MEDS ORDERED: hydrALAZINE 20 MG/ML VIAL SLOW IVP PRN (22:13)
--- NOTE | 2019-08-24 23:11 | PRG ---
DATE OF SERVICE: SUBJECTIVE: Patient was seen this evening during rounds. She was sitting up in bed with no signs of acute distress. She reported pain is well controlled. She has been working with Physical and Occupational Therapy. She has poor oral intake. She says she is very picky when it comes to her food. She is dissatisfied with the options at this hospital. OBJECTIVE: VITAL SIGNS: Temperature 98.6, pulse 81, respirations 16, oxygen saturation 97% on room air, and blood pressure 194/88. GENERAL: Well-appearing elderly female, sitting up in bed with no signs of acute distress. PULMONARY: Equal chest rise and fall. No signs of acute respiratory distress. ASSESSMENT: 1. Status post mechanical fall, on aspirin and Plavix. 2. Left intertrochanteric femur fracture, status post repair. 3. History of hypertension, coronary artery disease, chronic obstructive pulmonary disease, hyperlipidemia, and recent cardiac stents. PLAN: Continue current diet and pain regimen. Continue physical and occupational therapy. 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 He has added Norvasc to her morning antihypertensives medications. Overnight, we will add hydralazine IV p.r.n. for blood pressure control. Patient is pending placement at an acute rehab facility. She is ready for discharge at this time. Job ID: [id number]
[2019-08-25] MEDS: Acetaminophen 500 MG TAB PO SCH ×2 (04:12→09:22)
[2019-08-25] MEDS: traMADol HCl 50 MG TAB PO SCH ×2 (04:13→09:24)
[2019-08-25] MEDS: traMADol HCl 50 MG TAB PO PRN (05:37)
[2019-08-25] MEDS ORDERED: Amlodipine 5 MG TAB PO SCH (09:00)
[2019-08-25] MEDS: Senokot S 8.6-50 MG TAB PO SCH (09:18)
[2019-08-25] MEDS: Polyethylene Glycol 3350 17 GM Packet PO SCH (09:18)
[2019-08-25] MEDS: Aspirin 81 mg Enteric Coated Tablet PO SCH (09:18)
[2019-08-25] MEDS: Ferrous Sulfate 325 MG TAB PO SCH (09:19)
[2019-08-25] MEDS: Potassium Chloride 10 MEQ TAB PO SCH (09:19)
[2019-08-25] MEDS: Gabapentin 300 MG CAP PO SCH (09:19)
[2019-08-25] MEDS: Clopidogrel Bisulfate 75 MG TAB PO SCH (09:19)
[2019-08-25] MEDS: Doxycycline 100 MG CAP PO SCH (09:19)
[2019-08-25] MEDS: Ascorbic Acid 500 mg Chewable Tablet PO SCH (09:19)
[2019-08-25] MEDS: Carvedilol 6.25 MG TAB PO SCH (09:20)
[2019-08-25] MEDS: Losartan 25 MG TAB PO SCH (09:21)
[2019-08-25 11:50] VITALS: BP 118/60; TEMP 98.5
--- NOTE | 2019-08-25 14:21 | DIS ---
DATE OF ADMISSION: 08/19/2019 DATE OF DISCHARGE: 08/25/2019 This is Amanda Etienne NP dictating a report for Dr. Lacy. DISCHARGE ATTENDING: Dr. Lacy. CONSULTS: 1. Orthopedic Surgery, Dr. Alvarez. 2. Cardiology, Dr. Roberts. PROCEDURES: On 08/20/2019, left femur intramedullary nail placement. PRIMARY DIAGNOSES: 1. Status post fall from chair, approximately 2 to 3 feet, left intertrochanteric femur fracture. 2. Acute traumatic pain secondary to above. SECONDARY DIAGNOSES: Recent cardiac stent placement, on aspirin and Plavix; hypertension; hyperlipidemia; chronic obstructive pulmonary disease. DISCHARGE MEDICATIONS: 1. Acetaminophen 1000 mg p.o. q.6 hours. 2. Norvasc 2.5 mg q.a.m. 3. Vitamin C 500 mg p.o. b.i.d. with meals for 30 days. 4. Aspirin 81 mg daily. 5. Lipitor 40 mg at bedtime. 6. Carvedilol 3.125 mg b.i.d. 7. Plavix 75 mg daily. 8. Flexeril 5 mg p.o. three times a day as needed for muscle spasms. 9. Doxycycline 100 mg p.o. b.i.d. for 14 days. 10. Ferrous sulfate 325 mg p.o. b.i.d. with meals for 30 days. 11. Gabapentin 300 mg p.o. three times a day. 12. Losartan 25 mg p.o. daily. 13. MiraLAX as needed for constipation. 14. Potassium chloride 10 mEq p.o. daily. 15. Tramadol 50 mg q.6 hours scheduled and 50 mg p.o. q.6 hours p.r.n. for breakthrough pain. 16. Imdur 30 mg p.o. daily. HISTORY OF PRESENT ILLNESS AND HOSPITAL COURSE: This is a 69-year-old female, who was up on a chair in her garage when she lost her balance, causing her to fall onto her left hip. The patient denied any loss of consciousness. The patient was unable to ambulate and had left-sided hip pain. The patient was taken for repair by Orthopedic Surgery. The patient's pain was controlled pre and postop. The patient was also seen by Dr. Roberts during her hospital stay as she had a recent cardiac catheterization done on 07/24/2019. The patient did have some hypertension and was started on Norvasc per Dr. Roberts. The patient was able to work with Physical and Occupational Therapy. The patient did have a mild length of stay due to no private rooms being available at inpatient rehab. On the day of discharge, the patient was evaluated by Dr. Lacy. The patient did have some increased pain, in which the patient's gabapentin was increased to 3 times a day as the patient had increased pain. On the day of discharge, the patient's vital signs were stable and her exam was unremarkable including cardiopulmonary and GI exam. The patient was deemed stable for discharge to inpatient rehab for continued physical and occupational therapy. DISPOSITION: Stable. DISCHARGE INSTRUCTIONS: 1. Location: Rehab. 2. Diet: Regular diet. 3. Activity: Orthopedic limitations, hip precautions, weightbearing as tolerated. FOLLOWUP: Follow up with Orthopedic Surgery, Dr. Bain in 10 to 14 days. No need to follow up with Trauma Services. Follow up with primary care physician as needed. Job ID: [id number] [facility]
[2019-08-25] MEDS ORDERED: Gabapentin 300 MG CAP PO SCH (15:00)
--- NOTE | 2019-08-27 07:37 | PQF ---
CLINICAL DOCUMENTATION CLARIFICATION FORM: Dear : Nadir Lacy Date / Time: 08/27/2019 0736 Please exercise your independent, professional judgment in responding to the clarification form. Clinical indicators are provided on the bottom of this form for your review Please check appropriate box(es): [ ] Recent Myocardial infarction is still and active diagnosis in this admission [ x ] Recent Myocardial infarction is a history and already treated [ ] Other diagnosis [ ] Unable to determine Physician Signature: Date/Time: For continuity of documentation, please document condition throughout progress notes and discharge summary. Thank You. To be completed by CDI/Coding staff for physician review: Present Clinical Indicators - Signs / Symptoms / Labs Results and Location in Medical Record [X] BP 185/63, pulse 68, Resp 15, Temp 98.9 Vital signs 08/18 [X] Pt also had a cardiac stent and cardiac catheterization done on 07/24/19 H& P p1 08/18 Michelle PA-C [X] She had a recent GA and stents placed recently Consult p1 08/19 Dr Alvarez [X] EKG: possible old inferior and anterior infarcts ED Notes 08/18 Present Risk Factors Results and Location in Medical Record [X] 69 year-old Female H&P p1 7/ Michelle PA-C [X] HTN H&P p2 08/18 [place] PA-C [X] CAD H&P p2 / Michelle PA-C [X] COPD H&P p2 / Michelle PA-C [X] High Cholesterol H&P p2 08/18 Michelle PA-C [X] HLD H&P p3 08/18 [place] PA-C [X] Smoker ED Notes 08/18 [X] DM Cardiology PN 08/22 Present Treatments Results and Location in Medical Record [X] Aspirin Chewable 81 mg oral MAR 08/19 [X] Coreg 3.125 mg oral APR 17 [X] Plavix 75 mg oral APR 17 [X] Cardiology consult Consult Nnamdi Lindo 08/19 [X] EKG ED Notes 08/18 CDS/[place] Signature: Barb Stubbs Phone #: [phone] Date/Time: 08/27/19 8604 This is a permanent part of the Medical Record [facility]
== END 2019-08-25 14:06 | DRG 481 ==
LOC: ERS 16:15 → SURG A 21:26
PROVIDERS: ADMIT Surgery; ATTEND Surgery
PROC: 0QS706Z Reposition Left Upper Femur with Intramedullary Internal Fixation Device, Open Approach (ICD-10-PCS; principal; 2019-08-20)
PROC: 30233N1 Transfusion of Nonautologous Red Blood Cells into Peripheral Vein, Percutaneous Approach (ICD-10-PCS; 2019-08-21)
DX: S72.142A Displaced intertrochanteric fracture of left femur, initial encounter for closed fracture (principal); D62 Acute posthemorrhagic anemia; M96.830 Postprocedural hemorrhage of a musculoskeletal structure following a musculoskeletal system procedure; Z11.59 Encounter for screening for other viral diseases; I10 Essential (primary) hypertension; E78.5 Hyperlipidemia, unspecified; J44.9 Chronic obstructive pulmonary disease, unspecified; I25.10 Atherosclerotic heart disease of native coronary artery without angina pectoris; F17.210 Nicotine dependence, cigarettes, uncomplicated; E78.00 Pure hypercholesterolemia, unspecified; M19.90 Unspecified osteoarthritis, unspecified site; I73.9 Peripheral vascular disease, unspecified; E11.9 Type 2 diabetes mellitus without complications; Y83.8 Other surgical procedures as the cause of abnormal reaction of the patient, or of later complication, without mention of misadventure at the time of the procedure; W07.XXXA Fall from chair, initial encounter; Y92.59 Other trade areas as the place of occurrence of the external cause; Z90.710 Acquired absence of both cervix and uterus; Z95.5 Presence of coronary angioplasty implant and graft; I25.2 Old myocardial infarction; Z88.6 Allergy status to analgesic agent; Z90.49 Acquired absence of other specified parts of digestive tract; Z88.0 Allergy status to penicillin; Z88.8 Allergy status to other drugs, medicaments and biological substances; Z79.899 Other long term (current) drug therapy; Z79.82 Long term (current) use of aspirin; Z79.02 Long term (current) use of antithrombotics/antiplatelets
CPT/HCPCS: 36415; 36430; 71045; 72170; 76000; 80048; 80053; 81001; 82533; 83735; 84100; 85025; 85027; 85610; 85730; 86850; 86900; 86901; 86922; 93005; 94640; 96374; 96376; C1713; G0390; J1720; J1956; J2270; J2405; J2704; J2930; J3010; J3475; J3490; J7050; J7620; P9016; U0002

== ENCOUNTER 2019-12-14 08:59 | Outpatient (CLI) | payer MEDICARE ==
--- NOTE | 2019-12-14 11:37 | RAD ---
PA AND LATERAL CHEST: Date: 12/14/2019 HISTORY: COPDY, dyspnea. History of smoking for many years. FINDINGS: Heart size is within normal limits. There are atherosclerotic changes of the aorta. Chronic appearing interstitial changes are seen. There is flattening to the hemidiaphragms. Calcified granuloma in the right mid lung field. In comparison to the 08/19/2019 exam, the changes are stable. IMPRESSION: Stable exam. POS: [facility]
== END 2019-12-14 09:00 | disposition home or self-care (01) ==
LOC: BICRAD 08:59
PROVIDERS: ATTEND Internal Medicine Critical Care Medicine
DX: R06.00 Dyspnea, unspecified (principal)
CPT/HCPCS: 71046

== ENCOUNTER 2020-12-13 09:07 | Outpatient (CLI) | payer MEDICARE | END 2020-12-13 09:08 | disposition home or self-care (01) | LOC: RAD 09:07 | PROVIDERS: ATTEND Internal Medicine Critical Care Medicine | DX: R06.00 Dyspnea, unspecified (principal) | CPT/HCPCS: 71046 ==

== ENCOUNTER 2021-03-08 09:26 | Outpatient (CLI) | payer MEDICARE | END 2021-03-08 09:27 | disposition home or self-care (01) | LOC: RAD 09:26 | PROVIDERS: ATTEND Internal Medicine Critical Care Medicine | DX: R06.00 Dyspnea, unspecified (principal); M48.54XA Collapsed vertebra, not elsewhere classified, thoracic region, initial encounter for fracture; J98.4 Other disorders of lung; J84.10 Pulmonary fibrosis, unspecified | CPT/HCPCS: 71046 ==

== ENCOUNTER 2021-08-10 13:55 | Outpatient (CLI) | payer MEDICARE | END 2021-08-10 13:56 | disposition home or self-care (01) | LOC: SCSRAD 13:55 | PROVIDERS: ATTEND Family Medicine | DX: M25.532 Pain in left wrist (principal) ==

== ENCOUNTER 2021-12-13 10:47 | Outpatient (CLI) | payer MEDICARE | END 2021-12-13 10:48 | disposition home or self-care (01) | LOC: BICMAMMO 10:47 | PROVIDERS: ATTEND Family Medicine | DX: Z12.31 Encounter for screening mammogram for malignant neoplasm of breast (principal) | CPT/HCPCS: 77063; 77067 ==

== ENCOUNTER 2023-01-24 11:49 | Outpatient (CLI) | payer MEDICARE | END 2023-01-24 11:50 | disposition home or self-care (01) | LOC: RAD 11:49 | PROVIDERS: ATTEND Internal Medicine Critical Care Medicine | DX: R06.00 Dyspnea, unspecified (principal); M85.88 Other specified disorders of bone density and structure, other site; M48.54XA Collapsed vertebra, not elsewhere classified, thoracic region, initial encounter for fracture | CPT/HCPCS: 71046 ==

== ENCOUNTER 2023-07-24 09:40 | Outpatient (CLI) | payer MEDICARE | END 2023-07-24 09:41 | disposition home or self-care (01) | LOC: RAD 09:40 | PROVIDERS: ATTEND Internal Medicine Critical Care Medicine | DX: R06.00 Dyspnea, unspecified (principal); J98.4 Other disorders of lung; M85.80 Other specified disorders of bone density and structure, unspecified site; S22.009A Unspecified fracture of unspecified thoracic vertebra, initial encounter for closed fracture | CPT/HCPCS: 71046 ==

== ENCOUNTER 2024-02-18 09:31 | Outpatient (CLI) | payer MEDICARE | END 2024-02-18 09:32 | disposition home or self-care (01) | LOC: RAD 09:31 | PROVIDERS: ATTEND Internal Medicine Critical Care Medicine | DX: R06.00 Dyspnea, unspecified (principal); J84.10 Pulmonary fibrosis, unspecified; J84.9 Interstitial pulmonary disease, unspecified; M47.819 Spondylosis without myelopathy or radiculopathy, site unspecified | CPT/HCPCS: 71046 ==